=== PATIENT | male | born 1955 | race Two or more races ===

== ENCOUNTER 2024-08-09 21:46 | Inpatient (IN) | payer MEDICARE, MEDICAID ==
[~2024-08-09] VITALS: Ht 167.6 cm; Wt 84.1 kg
[2024-08-09 23:02] LABS: Basophils # (auto) 0 10 ^3/uL (0-0.2); Basophils % (auto) 0.4 % (0.0-2.0); Eosinophils # (auto) 0.1 10 ^3/uL (0-0.8); Eosinophils % (auto) 1.3 % (0.0-7.0); Hematocrit 36.8 % (41.0-53.0); Hemoglobin 12.5 g/dL (13.5-17.5); Lymphocytes # (auto) 1.3 10 ^3/uL (0.4-5.4); Mean Corpuscular Hemoglobin 31.5 pg (28.0-32.0); Mean Corpuscular Hgb Conc. 34.1 g/dL (32.0-36.0); Mean Corpuscular Volume 92.4 fL (80.0-100.0); Monocytes # (auto) 1.2 10 ^3/uL (0-1.3); Monocytes % (auto) 10.7 % (0.0-12.0); Neutrophils # (auto) 8.4 10 ^3/uL (1.6-8.6); Neutrophils % (auto) 75.6 % (37.0-80.0); Platelet Count (auto) 183 10^3/uL (140-450); Red Blood Cells 3.98 10^6/uL (4.5-5.90); Red Cell Distribution Width 13.8 % (11.8-14.3); White Blood Cell 11.1 10^3/uL (4.4-10.8)
--- NOTE | 2024-08-09 23:02 | ED.PDOC ---
History of Present Illness HPI Comments 69-year-old male came to emergency room due to penile/urinary problems. Patient underwent reversal of colostomy 3 days ago, tolerated procedure well, and was discharged with a Tiwari catheter inserted. Patient states few hours ago he started having lower abdominal and penile pain. Noted that his Tiwari catheter is not draining properly and his urine bag is filled with blood. Chief Complaint: Penile Problem Time Seen by MD: 23:00 Primary Care Provider: UNKNOWN Reviewed Notes: Nurses Notes, [employer] T[employer] Notes Allergies: Coded Allergies: No Known Drug Allergy (Verified Allergy, Unknown, 08/10/24) Information Source: Patient Mode of Arrival: EMS Severity: Moderate Timing: Hours Duration: Since onset Review of Systems REVIEW OF SYSTEMS: No fever, no chills, or fatigue HEENT: No sore throat, no earache, no congestion, no neck pain. Cardiac: No chest pain. No palpitations. Lungs: No shortness of breath, no cough. GI: No nausea, no vomiting, no diarrhea, no constipation, (+) abdominal pain : No dysuria, frequency, or urgency. (+) hematuria. (+) urinary retention Musculoskeletal: No joint pain , no joint swelling, no extremity edema. Skin: No rash, no itching. Neuro: No headache, no dizziness, no weakness Vital Signs Vital Signs Date Time Temp Pulse Resp B/P (MAP) Pulse Ox O2 Delivery O2 Flow Rate FiO2 08/10/24 00:30 98.0 60 18 125/80 (95) 97 98.0 Physical Exam General: Awake, alert and oriented. No acute distress. Skin: Skin in warm, dry and intact. Appropriate color for ethnicity. Nailbeds pink with no cyanosis. HEENT: The head is normocephalic and atraumatic. Conjunctivae are clear without exudates or hemorrhage. Sclera is non-icteric. EOM are intact. No signs of nystagmus. Eyelids are normal in appearance without swelling or lesions. Oral mucosa is pink and moist Neck: The neck is supple with normal range of motion. No JVD. Cardiac: Heart rate and rhythm are normal. No murmurs, gallops, or rubs are auscultated. Respiratory: No signs of respiratory distress. Lung sounds are clear in all lobes bilaterally without rales, ronchi, or wheezes. Abdominal: Abdomen is soft, non-tender without distention. Bowel sounds are present and normoactive in all four quadrants. : Right inguinal hernia noted, no overlying skin changes. Tiwari catheter in place. Penis normal. Dark red blood noted in catheter Extremities: Upper and lower extremities are atraumatic in appearance without deformity or edema. Neurological: The patient is awake, alert and oriented to person, place, and ti me with normal speech. Speech is clear. There is no facial asymmetry. Past Medical History PAST MEDICAL HISTORY: HTN Surgical History (Other): Colostomy reversal Family History Family History: Reviewed,noncontributory to illness Social History Smoker: Non-Smoker Alcohol: Denies ETOH Use Drugs: Denies Drug Use Lives In: Home Was a procedure done? Was a procedure done?: No Differential Dx Considerations may include: Anemia, electrolyte imbalance, UTI, urinary retention, postop complication X-Ray, Labs, Meds, VS Vital Signs Date Time Temp Pulse Resp B/P (MAP) Pulse Ox O2 Delivery O2 Flow Rate FiO2 08/10/24 00:30 98.0 60 18 125/80 (95) 97 98.0 08/09/24 22:06 98.6 98 16 124/56 (78) 96 Lab Test 08/10/24 04:35 08/09/24 22:50 Range/Units Urine Color Pending Urine Clarity Pending Urine pH Pending Urine Specific [place] Pending Urine Protein Pending Urine Ketones Pending Urine Blood Pending Urine Nitrite Pending Urine Bilirubin Pending Urine Urobilinogen Pending Urine Leukocyte Esterase Pending Urine RBC Pending Urine Microscopic WBC Pending Urine Squamous Epithelial Cells Pending Urine Bacteria Pending Urine Glucose Pending White Blood Count 11.1 H 4.4-10.8 10^3/uL Red Blood Count 3.98 L 4.5-5.90 10^6/uL Hemoglobin 12.5 L 13.5-17.5 g/dL Hematocrit 36.8 L 41.0-53.0 % Mean Corpuscular Volume 92.4 80.0-100.0 fL Mean Corpuscular Hemoglobin 31.5 28.0-32.0 pg Mean Corpuscular Hemoglobin Concent 34.1 32.0-36.0 g/dL Red Cell Distribution Width 13.8 11.8-14.3 % Platelet Count 183 140-450 10^3/uL Mean Platelet Volume 8.3 6.9-10.8 fL Neutrophils (%) (Auto) 75.6 37.0-80.0 % Lymphocytes (%) (Auto) 12.0 10.0-50.0 % Monocytes (%) (Auto) 10.7 0.0-12.0 % Eosinophils (%) (Auto) 1.3 0.0-7.0 % Basophils (%) (Auto) 0.4 0.0-2.0 % Neutrophils # (Auto) 8.4 1.6-8.6 10 ^3/uL Lymphocytes # (Auto) 1.3 0.4-5.4 10 ^3/uL Monocytes # (Auto) 1.2 0-1.3 10 ^3/uL Eosinophils # (Auto) 0.1 0-0.8 10 ^3/uL Basophils # (Auto) 0 0-0.2 10 ^3/uL Nucleated Red Blood Cells 0.0 % Prothrombin Time 11.4 9.3-11.8 sec Prothrombin Time INR 1.08 0.9-1.15 Sodium Level 139 136-145 mmol/L Potassium Level 3.3 L 3.5-5.1 mmol/L Chloride Level 104 98-107 mmol/L Carbon Dioxide Level 22 20-31 mmol/L Anion Gap 13 5-15 Blood Urea Nitrogen 44 H 9-23 mg/dL Creatinine 2.11 H 0.700-1.30 mg/dL Glomerular Filtration Rate Calc 33 >90 mL/min BUN/Creatinine Ratio 20.9 H 10.0-20.0 Serum Glucose 128 H 74-106 mg/dL Calcium Level 9.6 8.7-10.4 mg/dL Total Bilirubin 0.7 0.2-1.0 mg/dL Aspartate Amino Transferase (AST) 24 13-40 U/L Alanine Aminotransferase (ALT) 23 7-40 U/L Alkaline Phosphatase 75 46-116 U/L Total Protein 6.9 5.7-8.2 g/dL Albumin 4.0 3.2-4.8 g/dL Exam: CT CT AB PEL WO CON-NO ORAL OR IV History: Hematuria, status post colostomy reversal Comparison Study: None available at time of dictation. TECHNIQUE: Multidetector CT of the abdomen was performed from lung bases to pubic symphysis. Imaging was performed without IV contrast. Axial, coronal and sagittal multiplanar reformats were obtained from the axial data set by the technologist. Radiation Dose Information: CT Dose: CTDI volume is 25 mGy. Dose-length product is 250 mGy*cm FINDINGS: Evaluation of solid organs is limited due to lack of intravenous contrast use. Findings: Lung Bases: No acute or significant lung base finding. Normal heart size. No pleural or pericardial effusion. Liver: The liver is normal in size. No focal lesions. Gallbladder and Biliary Tree:gallstones Spleen: Unremarkable Pancreas: The pancreas is grossly normal in appearance. Adrenal Glands: Unremarkable Kidneys: Possible 2 mm left proximal ureteral stone. No definite left hydroureter nephrosis. Atrophic left kidney. Bladder: Tiwari catheter within the bladder. Bowel: The stomach is grossly normal in appearance. Small bowel and colon are normal in caliber and distribution. The appendix is not visualized; however, no secondary findings of acute appendicitis identified. Ascites: Absent Lymphadenopathy: No mesenteric, retroperitoneal or periportal lymphadenopathy. Abdominal Wall and Mesentery: Large right inguinal hernia containing loop of bowel. Vasculature: The visualized abdominal aorta is normal in size and caliber. Evaluation of abdominal and pelvic vessels is limited due to lack of intravenous contrast. Pelvic Organs: Unremarkable Musculoskeletal: No aggressive focal bony lesions, acute fractures or dislocation. Soft tissues: Unremarkable IMPRESSION: Possible 2 mm left proximal ureteral stone. No definite left hydroureter nephrosis. Atrophic left kidney. Gallstones. Postsurgical changes involving the left lower quadrant with left lower quadrant colostomy reversal. Inflammatory changes involve the left lower quadrant, likely postsurgical in nature. Large right inguinal hernia containing loop of bowel. Time of 1ST Reevaluation: 22:51 Reevaluation 1ST: Unchanged Patient Education/Counseling: Diagnosis, Treatment Family Education/Counseling: No Family Present Departure 1 Departure Time of Disposition: 04:45 Impression: Primary Impression: Anticoagulant-induced hematuria Additional Impressions: Nephrolithiasis Urinary retention Tiwari catheter in place Disposition: ADMITTED INPATIENT Condition: Stable Comments 69-year-old male who presents to the emergency department urinary retention and Tiwari catheter in place postoperatively. Patient has hematuria, he is on Eliquis. He continues to report lower abdominal pain. Patient admitted for further treatment, evaluation and monitoring. Extensive evaluation was performed in attempt to identify or rule out: (See differential diagnosis section) The following tests were ordered, and results were reviewed by me: (See diagnostic results section) The following test were independently interpreted by me: N/A I reviewed and agreed with the following test results read by other providers: N/A I reviewed the following notes from the pt's past medical encounters: (None available at this time) Additional information was gathered from interviewing the following independent historians: EMS personnel Discussion of management or test interpretation with external physician/other qualified health rn urgent care: N/A Addressed an acute or chronic illness that poses a threat to life or bodily function: Hematuria on anticoagulation Decision regarding hospitalization or escalation of hospital level of care: Risk and benefits of admission for further treatment of patient's condition was considered. Due to patient's current clinical condition, high risk of decline and poor outcome if discharged and need for further inpatient management and monitoring, patient will be admitted to the hospital. Discussed this with the patient who agrees. Drug therapy requiring intensive monitoring for toxicity: N/A Parenteral controlled substances: IV morphine Decision regarding elective major surgery with identified patient or procedure risk factors: N/A Decision regarding emergency major surgery: N/A Decision not to resuscitate or to de-escalate care because of poor prognosis: N/A Diagnosis or treatment significantly limited by social determinants of health: N/A Critical Care Note Critical Care Time?: No Stability Stability form required: No Heart Score Heart Score: Heart Score Response (Comments) Value History N/A 0 EKG N/A 0 Age N/A 0 Risk Factors N/A 0 Troponin N/A 0 Total 0 I personally scribed for MAGGIE RODRIGUEZ MD ([employer]) on 08/09/24 at 23:02. Electronically submitted by Josué Heard ([employer]). I personally scribed for MAGGIE RODRIGUEZ MD ([employer]) on 08/10/24 at 00:56. Electronically submitted by Josué Heard ([employer]). MAGGIE RODRIGUEZ MD Aug 09, 2024 23:02
[2024-08-09 23:26] LABS: Alanine Aminotransferase 23 U/L (7-40); Alkaline Phosphatase 75 U/L (46-116); Anion Gap 13 (5-15); Aspartate Aminotransferase 24 U/L (13-40); BUN/Creatinine Ratio 20.9 (10.0-20.0); Bilirubin, Total 0.7 mg/dL (0.2-1.0); Calcium 9.6 mg/dL (8.7-10.4); Carbon Dioxide 22 mmol/L (20-31); Chloride 104 mmol/L (98-107); Sodium 139 mmol/L (136-145); Total Protein 6.9 g/dL (5.7-8.2)
[2024-08-09 23:33] LABS: Blood Urea Nitrogen 44 mg/dL (9-23); Glucose 128 mg/dL (74-106); Potassium 3.3 mmol/L (3.5-5.1)
[2024-08-09 23:56] LABS: INR 1.08 (0.9-1.15); Prothrombin Time 11.4 sec (9.3-11.8)
--- NOTE | 2024-08-10 00:31 | DVH ---
Exam: CT CT AB PEL WO CON-NO ORAL OR IV History: Hematuria, status post colostomy reversal Comparison Study: None available at time of dictation. TECHNIQUE: Multidetector CT of the abdomen was performed from lung bases to pubic symphysis. Imaging was performed without IV contrast. Axial, coronal and sagittal multiplanar reformats were obtained fr om the axial data set by the technologist. Radiation Dose Information: CT Dose: CTDI volume is 25 mGy. Dose-length product is 250 mGy*cm FINDINGS: Evaluation of solid organs is limited due to lack of intravenous contrast use. Findings: Lung Bases: No acute or significant lung base finding. Normal heart size. No pleural or pericardial effusion. Liver: The liver is normal in size. No focal lesions. Gallbladder and Biliary Tree:gallstones Spleen: Unremarkable Pancreas: The pancreas is grossly normal in appearance. Adrenal Glands: Unremarkable Kidneys: Possible 2 mm left proximal ureteral stone. No definite left hydroureter nephrosis. Atrophic left kidney. Bladder: Tiwari catheter within the bladder. Bowel: The stomach is grossly normal in appearance. Small bowel and colon are normal in caliber and d istribution. The appendix is not visualized; however, no secondary findings of acute appendicitis id entified. Ascites: Absent Lymphadenopathy: No mesenteric, retroperitoneal or periportal lymphadenopathy. Abdominal Wall and Mesentery: Large right inguinal hernia containing loop of bowel. Vasculature: The visualized abdominal aorta is normal in size and caliber. Evaluation of abdominal a nd pelvic vessels is limited due to lack of intravenous contrast. Pelvic Organs: Unremarkable Musculoskeletal: No aggressive focal bony lesions, acute fractures or dislocation. Soft tissues: Unremarkable IMPRESSION: Possible 2 mm left proximal ureteral stone. No definite left hydroureter nephrosis. Atrophic left kid gen. Gallstones. Postsurgical changes involving the left lower quadrant with left lower quadrant colostomy reversal. I nflammatory changes involve the left lower quadrant, likely postsurgical in nature. Large right inguinal hernia containing loop of bowel. Radiation optimization: All CT scans at this facility use at least one of these dose optimization james hniques: automated exposure control mA and/or kV adjustment per patient size (includes targeted exam s where dose is matched to clinical indication) or iterative reconstruction.
[2024-08-10] MEDS: MORPHINE SULFATE INJ 2 MG/ml SYRG IV ONE (05:28)
[2024-08-10 05:29] LABS: Urine Bacteria MANY /hpf (None Seen); Urine Squamous Epithelial Cell None Seen /hpf (<5); Urine WBC 999 /HPF (0-3)
[2024-08-10] MEDS: TAMSULOSIN HYDROCHLORIDE 0.4 MG CAP PO ONE (05:29)
[2024-08-10] MEDS: ONDANSETRON HCL 4 MG/2 ML VIAL IV ONE (05:29)
[2024-08-10] MEDS: SODIUM CHLORIDE 0.9% 1,000 ML IV ONE ×2 (05:29→10:04)
[2024-08-10 05:30] LABS: Urine Blood 2+ /uL (Negative); Urine Clarity TURBID (Clear); Urine Color DARK RED (Yellow); Urine Protein, UAD 3+ (Negative); Urine Specific Gravity 1.022 (1.001-1.035); Urine Urobilinogen 1 mg/dL (Negative); Urine pH 8.5 (5.0-9.0)
[2024-08-10] MEDS ORDERED: ONDANSETRON HCL 4 MG/2 ML VIAL IV PRN (09:30)
[2024-08-10] MEDS ORDERED: ATOR40TA52 PO (09:39)
--- NOTE | 2024-08-10 09:45 | DVHHP2 ---
History of Present Illness Reason for Visit: Penile problem History of Present Illness This 69-year-old male with past medical history of CHF, AFib on Eliquis, CKD, hyperlipidemia, depression, s/p colostomy reversal presents in the ED with a chief complaint of penile urinary problems. The patient reports recently underwent reversal of colostomy three days ago, the patient states was discharged with Tiwari catheter, noted blood in the urine associated with lower abdominal pain with gross hematuria. The patient denies dizziness, lightheadedness, chest pain, shortness of breath, nausea, vomiting, diarrhea. Past Medical History As stated in HPI Past Surgical History s/p colostomy reversal Family History Reviewed, non-contributory to the management of this case. Past Social History Admits to smoking Denies illicit drug or ETOH abuse Review of Systems Constitutional: Yes: Malaise; No: Fever, Chills, Sweats, Weakness, Other Eyes: No: Pain, Vision change, Conjunctivae inflammation, Eyelid inflammation, Other, Redness ENT: No: Ear pain, Ear discharge, Nose pain, Nose discharge, Nose congestion, Mouth pain, Mouth swelling, Throat pain, Throat swelling, Other Respiratory: No: Cough, Dry, Shortness of breath, SOB with excertion, Wheezing, Hemoptysis, Pleuritic Pain, Sputum, Wheezing, Other Cardiovascular: No: Chest Pain, Palpitations, Orthopnea, Paroxysmal Noc. Dyspnea, Edema, Lt Headedness, Other Gastrointestinal: Abdominal Pain; No: Nausea, Vomiting, Diarrhea, Constipation, Melena, Hematochezia Genitourinary: No Dysuria, No Frequency, No Incontinence; Hematuria, Retention; No Other Musculoskeletal: No: other, neck pain, shoulder pain, arm pain, back pain, hand pain, leg pain, foot pain Skin: No: Rash, Lesions, Jaundice, Bruising, Other Neurological: No: Weakness, Numbness, Incoordination, Change in speech, Confusion, Seizures, Other Allergies: Coded Allergies: No Known Drug Allergy (Verified Allergy, Unknown, 08/10/24) Exam Vital Signs Vital Signs Date Time Temp Pulse Resp B/P (MAP) Pulse Ox O2 Delivery O2 Flow Rate FiO2 08/10/24 08:48 59 08/10/24 07:43 Room Air* 0 21 08/10/24 07:27 97.9 19 111/70 (84) 96 97.9 General Appearance: Alert, Oriented X3, Cooperative, No acute distress, mild distress HEENT: Atraumatic, PERRLA, EOMI, Mucous membr. moist/pink Respiratory: Clear to auscultation, Normal air movement Cardiovascular: Other (Controlled AFib) Abdominal: Normal bowel sounds, Soft, No tenderness, Other (Gross hematuria) Extremities: No clubbing, No edema, Normal pulses Skin: No rashes, No breakdown, No significant lesion Neuro: Normal gait, Normal speech, Strength at 5/5 X4 ext, Normal tone Psych/Mental Status: Mental status NL Labs/Xrays Labs Test 08/10/24 04:35 08/09/24 22:50 Range/Units Urine Color Dark red Yellow Urine Clarity Turbid H Clear Urine pH 8.5 5.0-9.0 Urine Specific [place] 1.022 1.001-1.035 Urine Protein 3+ H Negative Urine Ketones Negative Negative Urine Blood 2+ H Negative /uL Urine Nitrite Negative Negative Urine Bilirubin Negative Negative Urine Urobilinogen 1 H Negative mg/dL Urine Leukocyte Esterase 3+ Negative /uL Urine RBC 45948 0 - 3 /hpf Urine Microscopic WBC 999 H 0-3 /HPF Urine Squamous Epithelial Cells None seen <5 /hpf Urine Bacteria Many H None Seen /hpf Urine Glucose Normal Normal mg/dL White Blood Count 11.1 H 4.4-10.8 10^3/uL Red Blood Count 3.98 L 4.5-5.90 10^6/uL Hemoglobin 12.5 L 13.5-17.5 g/dL Hematocrit 36.8 L 41.0-53.0 % Mean Corpuscular Volume 92.4 80.0-100.0 fL Mean Corpuscular Hemoglobin 31.5 28.0-32.0 pg Mean Corpuscular Hemoglobin Concent 34.1 32.0-36.0 g/dL Red Cell Distribution Width 13.8 11.8-14.3 % Platelet Count 183 140-450 10^3/uL Mean Platelet Volume 8.3 6.9-10.8 fL Neutrophils (%) (Auto) 75.6 37.0-80.0 % Lymphocytes (%) (Auto) 12.0 10.0-50.0 % Monocytes (%) (Auto) 10.7 0.0-12.0 % Eosinophils (%) (Auto) 1.3 0.0-7.0 % Basophils (%) (Auto) 0.4 0.0-2.0 % Neutrophils # (Auto) 8.4 1.6-8.6 10 ^3/uL Lymphocytes # (Auto) 1.3 0.4-5.4 10 ^3/uL Monocytes # (Auto) 1.2 0-1.3 10 ^3/uL Eosinophils # (Auto) 0.1 0-0.8 10 ^3/uL Basophils # (Auto) 0 0-0.2 10 ^3/uL Nucleated Red Blood Cells 0.0 % Prothrombin Time 11.4 9.3-11.8 sec Prothrombin Time INR 1.08 0.9-1.15 Sodium Level 139 136-145 mmol/L Potassium Level 3.3 L 3.5-5.1 mmol/L Chloride Level 104 98-107 mmol/L Carbon Dioxide Level 22 20-31 mmol/L Anion Gap 13 5-15 Blood Urea Nitrogen 44 H 9-23 mg/dL Creatinine 2.11 H 0.700-1.30 mg/dL Glomerular Filtration Rate Calc 33 >90 mL/min BUN/Creatinine Ratio 20.9 H 10.0-20.0 Serum Glucose 128 H 74-106 mg/dL Calcium Level 9.6 8.7-10.4 mg/dL Total Bilirubin 0.7 0.2-1.0 mg/dL Aspartate Amino Transferase (AST) 24 13-40 U/L Alanine Aminotransferase (ALT) 23 7-40 U/L Alkaline Phosphatase 75 46-116 U/L Total Protein 6.9 5.7-8.2 g/dL Albumin 4.0 3.2-4.8 g/dL PROCEDURE(s): ABPL - CT AB PEL WO CON-NO ORAL OR IV REASON: Hematuria, status post colostomy reversal ORDER NUMBER(s): [id number], ACCESSION NUMBER(s): [id number] Exam: CT CT AB PEL WO CON-NO ORAL OR IV History: Hematuria, status post colostomy reversal Comparison Study: None available at time of dictation. TECHNIQUE: Multidetector CT of the abdomen was performed from lung bases to pubic symphysis. Imaging was performed without IV contrast. Axial, coronal and sagittal multiplanar reformats were obtained from the axial data set by the technologist. Radiation Dose Information: CT Dose: CTDI volume is 25 mGy. Dose-length product is 250 mGy*cm FINDINGS: Evaluation of solid organs is limited due to lack of intravenous contrast use. Findings: Lung Bases: No acute or significant lung base finding. Normal heart size. No pleural or pericardial effusion. Liver: The liver is normal in size. No focal lesions. Gallbladder and Biliary Tree:gallstones Spleen: Unremarkable Pancreas: The pancreas is grossly normal in appearance. Adrenal Glands: Unremarkable Kidneys: Possible 2 mm left proximal ureteral stone. No definite left hydroureter nephrosis. Atrophic left kidney. Bladder: Tiwari catheter within the bladder. Bowel: The stomach is grossly normal in appearance. Small bowel and colon are normal in caliber and distribution. The appendix is not visualized; however, no secondary findings of acute appendicitis identified. Ascites: Absent Lymphadenopathy: No mesenteric, retroperitoneal or periportal lymphadenopathy. Abdominal Wall and Mesentery: Large right inguinal hernia containing loop of bowel. Vasculature: The visualized abdominal aorta is normal in size and caliber. Evaluation of abdominal and pelvic vessels is limited due to lack of intravenous contrast. Pelvic Organs: Unremarkable Musculoskeletal: No aggressive focal bony lesions, acute fractures or dislocation. Soft tissues: Unremarkable IMPRESSION: Possible 2 mm left proximal ureteral stone. No definite left hydroureter nephrosis. Atrophic left kidney. Gallstones. Postsurgical changes involving the left lower quadrant with left lower quadrant colostomy reversal. Inflammatory changes involve the left lower quadrant, likely postsurgical in nature. Large right inguinal hernia containing loop of bowel. Assessment/Plan Assessment/Plan # Acute cystitis #Acute abdominal pain #Acute urinary retention #Gross hematuria Admit to medical unit Empiric antibiotic Blood in urine culture CBI Urology consult Tamsulosin #LIDIA on CKD 3B IV fluid Monitor # Chronic AFib on Eliquis # CHF Hold given gross hematuria SCD prophylaxis for DVT Monitor for overload Continue with carvedilol and furosemide with parameters given soft BP # S/P colostomy reversal #Tobacco use Nicotine patch Smoking cessation counseled # Hyperlipidemia Statins Lipid panel DVT prophylaxis with SCD Medical plan discussed with patient and RN Plan discussed with: Patient My Orders Orders - LAURE ELDRIDGE [facility] Procedure Category Date Status Time Admit ADMIT 08/10/24 Verified 09:29 Code Status CODE 08/10/24 Verified 09:29 Ondansetron Hcl PHA 08/10/24 Verified (Zofran) 09:30 Date of Service: Aug 10, 2024 Billing Provider: LAURE ELDRIDGE Common Visit Codes: 30018-[id number] INP/OBS CARE (HIGH) LAURE ELDRIDGE Aug 10, 2024 09:45
[2024-08-10] MEDS: cefTRIAXone 1GM/50ML D5W 50 ML IV ONE (10:36)
[2024-08-10 12:14] VITALS: BP 120/66; PULSE 71; RESP 26; TEMP 96; O2SAT 97
[2024-08-10 12:37] VITALS: PULSE 71; RESP 26; O2SAT 97
[2024-08-10] MEDS ORDERED: FURO20TA4 PO (12:51)
[2024-08-10] MEDS ORDERED: CARV3.1240 PO (12:51)
[2024-08-10] MEDS ORDERED: APIX5TAB (13:53)
[2024-08-10] MEDS ORDERED: APIX5TAB PO (13:53)
[2024-08-10 14:29] LABS: LDL Cholesterol 38 mg/dL (< 100); Triglycerides 108 mg/dL (< 150)
[2024-08-10 14:30] LABS: Cholesterol 88 mg/dL (< 200)
[2024-08-10 14:33] LABS: HDL Cholesterol 29 mg/dL (40-59)
[2024-08-10] MEDS: MORPHINE SULFATE INJ 2 MG/ml SYRG IV PRN (14:38)
[2024-08-10 17:00] VITALS: BP 117/73; PULSE 70; RESP 20; TEMP 96; O2SAT 96
[2024-08-10] MEDS: TAMSULOSIN HYDROCHLORIDE 0.4 MG CAP PO SCH (18:11)
[2024-08-10 20:00] VITALS: PULSE 60; RESP 18; O2SAT 95
[2024-08-10 21:00] VITALS: BP 104/65; PULSE 61; RESP 16; TEMP 98; O2SAT 96
[2024-08-10] MEDS: ATORVASTATIN 20 MG TAB PO SCH (22:10)
[2024-08-11] VITALS (8 sets, daily range): BP systolic 108–131; BP diastolic 66–79; PULSE 53–87; RESP 17–20; TEMP 97.6–98.4; O2SAT 95–98
[2024-08-11 07:10] LABS: Basophils # (auto) 0.1 10 ^3/uL (0-0.2); Basophils % (auto) 0.7 % (0.0-2.0); Eosinophils # (auto) 0.3 10 ^3/uL (0-0.8); Eosinophils % (auto) 3.5 % (0.0-7.0); Hematocrit 34.8 % (41.0-53.0); Hemoglobin 11.7 g/dL (13.5-17.5); Lymphocytes # (auto) 1.3 10 ^3/uL (0.4-5.4); Lymphocytes % (auto) 17.2 % (10.0-50.0); Mean Corpuscular Hemoglobin 30.6 pg (28.0-32.0); Mean Corpuscular Hgb Conc. 33.5 g/dL (32.0-36.0); Mean Corpuscular Volume 91.3 fL (80.0-100.0); Monocytes % (auto) 13.5 % (0.0-12.0); Neutrophils # (auto) 4.8 10 ^3/uL (1.6-8.6); Neutrophils % (auto) 65.1 % (37.0-80.0); Nucleated Red Blood Cells % 0.1 %; Platelet Count (auto) 167 10^3/uL (140-450); Red Blood Cells 3.81 10^6/uL (4.5-5.90); Red Cell Distribution Width 13.4 % (11.8-14.3); White Blood Cell 7.4 10^3/uL (4.4-10.8)
--- NOTE | 2024-08-11 07:24 | DVHPNRES ---
Progress Note Date Seen: Aug 11, 2024 Resident Creating Document: SUKHI BURNHAM RESIDENT Medical Necessity Reason Pt with a Central, PICC or Fol: No Subjective Review of Systems Mr. Moody is a 69-year-old male past medical history of questionable congestive heart failure, atrial fibrillation on Eliquis-last dose 08/10, ostomy done 40 months back, reversal 08/07, inguinal hernia who presented to the ER with a chief complaint hematuria, inability to urinate and bloody stools. Was admitted in [facility] for this back for reversal of colostomy, following which he went home and developed urinary retention, pain and dysuria while urinating for the past 2 days. He reports taking Eliquis last dose 08/10. Also reports fresh red bleeding per rectum for the past day. Denies abdominal pain, fever, chills, nausea, vomiting. On admission, Tiwari catheter was placed. Now draining dark yellow urine. UA showed 3+ leukocyte esterase, 999 WBC +RBCs. H and H was 2/36 on arrival. Past medical/surgical history: See above Home medications: Entresto, clonidine, Coreg, aspirin Allergic history: None Social history: Smokes 10 cigarettes per day for the past more than 30 years, drinks socially, denies illicit drug use Patient seen and examined at the bedside. Holding of Eliquis. Stool occult positive. Started pantoprazole and Carafate. Rectal exam completed, rectal tone intact, prostatomegaly, no active bleeding, no external hemorrhoids felt no fissure no tenderness. Objective vital signs Vital Sign Date Time Temp Pulse Resp B/P (MAP) Pulse Ox O2 Delivery O2 Flow Rate FiO2 08/11/24 05:06 72 18 110/71 08/11/24 05:00 97.9 96 97.9 08/10/24 20:00 Room Air* 0 21 Total Intake and Output 08/10/24 08/10/24 08/11/24 15:00 23:00 07:00 Intake Total 815 ml 690 ml Output Total 93964 ml 3525 ml Balance 815 ml -01333 ml -3525 ml medications Current Medications Medications Dose Ordered Sig/Saad Route Start Time Stop Time Status Last Admin Dose Admin Ondansetron HCl 4 mg Q4HP PRN IV 08/10/24 09:30 Tamsulosin HCl 0.4 mg QPM PO 08/10/24 18:00 08/10/24 18:11 0.4 MG Ceftriaxone Sodium 50 ml @ 100 mls/hr DAILY@09 IV 08/11/24 09:00 Nicotine 1 patch DAILY TD 08/11/24 10:00 Atorvastatin Calcium 40 mg HS PO 08/10/24 22:00 08/10/24 22:10 40 MG Morphine Sulfate 2 mg Q4HPRN PRN IV 08/10/24 14:00 08/11/24 04:36 2 MG Pantoprazole Sodium 40 mg BID IV 08/11/24 10:00 UNV Sucralfate 1 gm QID@0600,1130,1700,2200 PO 08/11/24 11:30 UNV Examination Patient lying in bed, in no acute distress General: Well-built, afebrile, palor, mucosae are moist Cardiovascular: Regular S1 and S2. No murmurs, gallops or rubs. No JVD elevation. 1+ pitting edema Respiratory: Normal B/L air entry on room air. Clear lung sounds on auscultation Abdomen: Soft, suprapubic tenderness, nondistended, normoactive bowel sounds, no rebound tenderness, no organomegaly, no masses. No costovertebral tenderness. Rectal exam completed, rectal tone intact, prostatomegaly, no active bleeding, no external hemorrhoids felt no fissure no tenderness. Genitourinary: Deferred MSK/skin: Mobilizes 4 limbs. Skin is dry and warm Neurological: No motor, no sensitive deficits, normal speech. Pupils are isocoric and reactive. Psych/Mental Status: A/Ox3 laboratory and microbiology Laboratory Tests 08/11/24 06:19 Test 08/11/24 06:19 Range/Units Serum Glucose Pending Labs and/or images reviewed: Labs reviewed by me, Image(s) reviewed by me Problem List/Assessment/Plan Problem List/Assessment/Plan Acute cystitis ? Acute urinary retention Left nephrolithiasis Urine culture >100,000 CFU/mL Gram Negative Rods Blood culture prelim negative Renal ultrasound shows bilateral kidneys are small in size. No evidence of nephrolithiasis or hydronephrosis CT abdomen shows 2 mm left proximal ureteral stone Continue IV ceftriaxone 1 g daily starting 08/10 Tamsulosin 0.4 mg p.o. daily starting 03/12 Urology consultation pending Fresh red bleeding per rectum Occult positive History of colostomy reversal 08/07 at [facility] Gallstones, no acute cholecystitis Continue pantoprazole IV b.i.d. and Carafate 1 g q.i.d. GI consultation pending Reports that he had a colonoscopy which was normal few months back at [facility] Right inguinal hernia-nontender, nonerythematous, not incarcerated CT scan showed large right inguinal hernia containing loop of bowel Outpatient workup advised ? Congestive heart failure BNP 3 3 3 Chest x-ray ordered LIDIA, likely vasomotor mediated on ? CKD Anemia likely normocytic secondary to CKD Creatinine 2.1 on arrival, now 1.83 downtrending GFR 38 Persistent atrial fibrillation on Eliquis Holding Eliquis Chronic nicotine dependence Nicotine patch Counseled regarding cessation for more than 28 minutes Dyslipidemia 10 year ASCVD risk 18% Atorvastatin 40 mg HS daily DVT prophylaxis on hold given hematuria: SCDs Plan discussed with the patient in which all questions have been answered Goals of care discussed with the patient for more than 28 minutes, full code status Case discussed with Dr. Stein Plan discussed with: Patient My Orders My Orders Orders - SUKHI BURNHAM Procedure Category Date Status Time Pantoprazole [facility] 08/11/24 Logged (Protonix) 10:00 Sucralfate Susp PHA 08/11/24 Logged (Carafate Susp) 11:30 Copy Of Previous DOTTY 08/11/24 In Process Medical Recor 07:22 Obtain Mr From Other ORDERS 08/11/24 Transmitted Facility 07:22 Date of Service: Aug 11, 2024 Billing Provider: NATHALIA STEIN MD Common Visit Codes: [id number] INP/OBS CARE(HIGH) SUKHI BURNHAM Aug 11, 2024 07:24 NATHALIA STEIN MD Aug 11, 2024 18:58
[2024-08-11 07:29] LABS: Alanine Aminotransferase 21 U/L (7-40); Alkaline Phosphatase 66 U/L (46-116); Anion Gap 7 (5-15); BUN/Creatinine Ratio 20.8 (10.0-20.0); Calcium 8.9 mg/dL (8.7-10.4); Carbon Dioxide 25 mmol/L (20-31); Glucose 83 mg/dL (74-106); Potassium 3.7 mmol/L (3.5-5.1); Sodium 142 mmol/L (136-145); Total Protein 5.9 g/dL (5.7-8.2)
[2024-08-11 07:30] LABS: Albumin 3.4 g/dL (3.2-4.8); Aspartate Aminotransferase 22 U/L (13-40); Bilirubin, Total 0.6 mg/dL (0.2-1.0)
[2024-08-11 07:35] LABS: Blood Urea Nitrogen 38 mg/dL (9-23); Chloride 110 mmol/L (98-107)
[2024-08-11] MEDS: PANTOPRAZOLE 40 MG/10 ML VIAL INJ IV SCH (09:27)
[2024-08-11] MEDS: cefTRIAXone 1GM/50ML D5W 50 ML IV SCH (09:27)
[2024-08-11] MEDS: NICOTINE 7MG/24HR TOPICAL PATCH TD SCH (09:36)
[2024-08-11] MEDS: POTASSIUM EFFERVESENT TAB 25 MEQ PO ONE (09:37)
--- NOTE | 2024-08-11 11:12 | DVH ---
RENAL ULTRASOUND CLINICAL HISTORY: Rule out hydronephrosis TECHNIQUE: Multiple ultrasound images of the kidneys and bladder were obtained. COMPARISON: None FINDINGS: The right kidney measures 8.2 cm in length. The left kidney measures 7.7 cm. The kidneys appear small in size. There is no sonographic evidence of a discrete renal lesion, nephrolithiasis or hydronephro sis. There is a Tiwari catheter in the bladder which is decompressed limiting evaluation. IMPRESSION: 1. The kidneys are small in size. There is no evidence of nephrolithiasis or hydronephrosis. HS:Y
[2024-08-11 11:53] LABS: Free T4 (Free Thyroxine) 1.55 ng/dL (0.89-1.76); T3 Total 1.17 ng/mL (0.60-1.81)
--- NOTE | 2024-08-11 14:07 | DVH ---
CHEST RADIOGRAPH Indication: Deep breath chest x-ray, bilateral crackles Technique: Single frontal view of the chest was obtained Comparison: None FINDINGS: Lines and Tubes: None Lungs: No focal consolidation. Pleura: No effusion. No pneumothorax. Cardiomediastinal contours: Unremarkable Bones: No acute osseous abnormality. IMPRESSION: No acute cardiopulmonary disease.
[2024-08-11] MEDS: SUCRALFATE 1 GM/10 ML ORAL SUSP PO SCH (14:37)
--- NOTE | 2024-08-11 14:41 | ECG ---
[facility] Test Date: 2024-08-11 Test Time: 10:44:40 Pat Name: ALLY GALLO Department: Respiratoy Room: 0246 Gender: M Floorhand: KEITH : 1955 Requested By: SUKHI BURNHAM Order Number: [id number] Reading MD: Matt Mathews Measurements Intervals Ucon Rate: 73 P: 0 AK: 0 QRS: -145 QRSD: 160 T: 39 QT: 385 QTc: 425 Interpretive Statements Atrial fibrillation Right bundle branch block Electronically Signed On 08-13-2024 16:30:06 PDT by Matt Mathews Please click the below link to view image of tracing.
--- NOTE | 2024-08-11 15:26 | DVHSR ---
APPROVED REPORT EXAM: Two-dimensional and M-mode echocardiogram with Doppler and color Doppler. Blood Pressure: 122/74 mmHg INDICATION Peripheral Edema RISK FACTORS Height: 5'6", Weight: 182 DIMENSIONS LVDd5.0 (3.8-5.7cm)LA (2D)4.7 (1.9-4.0cm)Aortic Root (2.0-3.7cm) LVDs4.0 (2.5-4.0cm)LA (MM) (1.9-4.0cm)Aortic Cusp Exc (1.5-2.0cm) EF (%) 40.0 (55-70%)Rt. Atrium4.5 (1.9-4.0cm)Asc. Aorta cm IVSd1.2 (0.7-1.1cm)RV (D)4.4 (1.8-2.4cm) Mitral Valve MitralMitral Stenosis E wave0.61m/sMV Mean GR.mmHg E/A ratio0.02D MVAcm2 Aortic Valve Aortic ValveAortic Stenosis V10.80m/Alexa Mean GR.4mmHg V21.13m/Alexa Peak GR.5mmHg LVOT Diameter2.0 (1.8-2.4cm)Doppler AVA2.22cm2 Tricuspid Valve TR Velocity1.96m/s [id number] Other Information Quality : Technically LimitedRhythm : Technically limited study due to body habitus and patient position. Conclusion lvef 30% by visual estimate RV dysfunction mild biatrial enlargement moderate mild mitral regurg mild to moderate tricuspid regurg
[2024-08-11] MEDS: ATORVASTATIN 20 MG TAB PO SCH (22:54)
[2024-08-12 01:00] VITALS: BP 121/73; PULSE 86; RESP 19; TEMP 98.4; O2SAT 96
[2024-08-12 05:00] VITALS: BP 112/75; PULSE 60; RESP 18; TEMP 97.6; O2SAT 99
[2024-08-12 08:15] VITALS: PULSE 75; RESP 18; O2SAT 98
[2024-08-12 09:00] VITALS: BP 108/70; PULSE 68; RESP 16; TEMP 98.2; O2SAT 97
[2024-08-12] MEDS: ERTAPENEM SOD INJ 0.5 GM in SODIUM CHL 0.9% 50 ML IV ONE (10:30)
[2024-08-12] MEDS: CARVEDILOL 3.125 MG TAB PO ONE (11:12)
[2024-08-12] MEDS ORDERED: MORPHINE SULFATE INJ 2 MG/ml SYRG IV PRN (12:00)
--- NOTE | 2024-08-12 12:32 | DVHINCON2 ---
Date of service: Aug 12, 2024 Referring Physician Hospitalist Reason for Consultation Urinary retention History of Present Illness Patient recently underwent colostomy reversal and has been in urinary retention requiring Tiwari catheter. He has a three way Tiwari catheter on continuous bladder irrigation but the urine is currently clear. CBI has been turned off 69-year-old male with past medical history of CHF, AFib on Eliquis, CKD, hyperlipidemia, depression, s/p colostomy reversal presents in the ED with a chief complaint of penile urinary problems. The patient reports recently underwent reversal of colostomy three days ago, the patient states was discharged with Tiwari catheter, noted blood in the urine associated with lower abdominal pain with gross hematuria. The patient denies dizziness, lightheadedness, chest pain, shortness of breath, nausea, vomiting, diarrhea. Past Medical History As stated in HPI Past Surgical History s/p colostomy reversal Family History: Patient reports no known family medical history. Allergies: Coded Allergies: No Known Drug Allergy (Verified Allergy, Unknown, 08/10/24) Home Meds Reported Medications Apixaban Base (ELIQUIS) 5 Mg Tab, 5 MG PO BID, TAB 08/10/24 Apixaban Base (ELIQUIS) 5 Mg Tab, 1 08/10/24 Carvedilol (Carvedilol) 3.125 Mg Tab, 1 TAB PO DAILY 08/10/24 Furosemide (Furosemide) 20 Mg Tab, 1 TAB PO DAILY 08/10/24 Atorvastatin Calcium (ATORVASTATIN CALCIUM) 40 Mg Tab, 1 TAB PO DAILY 08/10/24 Current Medications Current Medications Medications (Trade) Dose Ordered Sig/Saad Route PRN Reason Start Time Stop Time Status Last Admin Atorvastatin Calcium (Lipitor) 40 mg HS PO 08/11/24 22:00 08/11/24 22:54 Carvedilol (Coreg Tablet) 3.125 mg Q12HR PO 08/12/24 22:00 Ertapenem 0.5 gm/ Sodium Chloride 50 ml @ 100 mls/hr DAILY IV 08/13/24 10:00 08/12/24 11:21 DC Ertapenem 1 gm/ Sodium Chloride 50 ml @ 100 mls/hr DAILY IV 08/13/24 10:00 Morphine Sulfate 2 mg Q3HPRN PRN IV SEVERE PAIN (7-10 PAIN SCALE) 08/12/24 12:00 UNV Review of Systems Constitutional: Yes: Malaise; No: Fever, Chills, Sweats, Weakness, Other Eyes: No: Pain, Vision change, Conjunctivae inflammation, Eyelid inflammation, Other, Redness ENT: No: Ear pain, Ear discharge, Nose pain, Nose discharge, Nose congestion, Mouth pain, Mouth swelling, Throat pain, Throat swelling, Other Respiratory: No: Cough, Dry, Shortness of breath, SOB with excertion, Wheezing, Hemoptysis, Pleuritic Pain, Sputum, Wheezing, Other Cardiovascular: No: Chest Pain, Palpitations, Orthopnea, Paroxysmal Noc. Dyspnea, Edema, Lt Headedness, Other Gastrointestinal: Abdominal Pain; No: Nausea, Vomiting, Diarrhea, Constipation, Melena, Hematochezia Genitourinary: No Dysuria, No Frequency, No Incontinence; Hematuria, Retention; No Other Musculoskeletal: No: other, neck pain, shoulder pain, arm pain, back pain, hand pain, leg pain, foot pain Skin: No: Rash, Lesions, Jaundice, Bruising, Other Neurological: No: Weakness, Numbness, Incoordination, Change in speech, Confusion, Seizures, Other Allergies: Coded Allergies: No Known Drug Allergy (Verified Allergy, Unknown, 08/10/24) Exam Exam Vital Signs Vital Signs Date Time Temp Pulse Resp B/P (MAP) Pulse Ox O2 Delivery O2 Flow Rate FiO2 08/10/24 08:48 59 08/10/24 07:43 Room Air* 0 21 08/10/24 07:27 97.9 19 111/70 (84) 96 97.9 General Appearance: Alert, Oriented X3, Cooperative, No acute distress, mild distress HEENT: Atraumatic, PERRLA, EOMI, Mucous membr. moist/pink Respiratory: Clear to auscultation, Normal air movement Cardiovascular: Other (Controlled AFib) Abdominal: Normal bowel sounds, Soft, No tenderness, Other (Gross hematuria) Extremities: No clubbing, No edema, Normal pulses Skin: No rashes, No breakdown, No significant lesion Neuro: Normal gait, Normal speech, Strength at 5/5 X4 ext, Normal tone Psych/Mental Status: Mental status NL Vital Signs Vital Signs Date Time Temp Pulse Resp B/P (MAP) Pulse Ox O2 Delivery O2 Flow Rate FiO2 08/12/24 11:12 85 117/73 08/12/24 11:00 18 08/12/24 09:00 98.2 97 98.2 08/12/24 08:15 Room Air* 0 21 Physical Exam Exam Exam Vital Signs Vital Signs Date Time Temp Pulse Resp B/P (MAP) Pulse Ox O2 Delivery O2 Flow Rate FiO2 08/10/24 08:48 59 08/10/24 07:43 Room Air* 0 21 08/10/24 07:27 97.9 19 111/70 (84) 96 97.9 General Appearance: Alert, Oriented X3, Cooperative, No acute distress, mild distress HEENT: Atraumatic, PERRLA, EOMI, Mucous membr. moist/pink Respiratory: Clear to auscultation, Normal air movement Cardiovascular: Other (Controlled AFib) Abdominal: Normal bowel sounds, Soft, No tenderness, Other (Gross hematuria) exam: Tiwari catheter in place with clear urine noted. Continuous bladder irrigation turned off Extremities: No clubbing, No edema, Normal pulses Skin: No rashes, No breakdown, No significant lesion Neuro: Normal gait, Normal speech, Strength at 5/5 X4 ext, Normal tone Psych/Mental Status: Mental status NL Labs/Diagnostic Data Labs Test 08/11/24 06:19 08/10/24 21:15 08/10/24 13:50 08/10/24 04:35 Range/Units White Blood Count 7.4 # 4.4-10.8 10^3/uL Red Blood Count 3.81 L 4.5-5.90 10^6/uL Hemoglobin 11.7 L 13.5-17.5 g/dL Hematocrit 34.8 L 41.0-53.0 % Mean Corpuscular Volume 91.3 80.0-100.0 fL Mean Corpuscular Hemoglobin 30.6 28.0-32.0 pg Mean Corpuscular Hemoglobin Concent 33.5 32.0-36.0 g/dL Red Cell Distribution Width 13.4 11.8-14.3 % Platelet Count 167 140-450 10^3/uL Mean Platelet Volume 8.6 6.9-10.8 fL Neutrophils (%) (Auto) 65.1 37.0-80.0 % Lymphocytes (%) (Auto) 17.2 10.0-50.0 % Monocytes (%) (Auto) 13.5 H 0.0-12.0 % Eosinophils (%) (Auto) 3.5 0.0-7.0 % Basophils (%) (Auto) 0.7 0.0-2.0 % Neutrophils # (Auto) 4.8 1.6-8.6 10 ^3/uL Lymphocytes # (Auto) 1.3 0.4-5.4 10 ^3/uL Monocytes # (Auto) 1.0 0-1.3 10 ^3/uL Eosinophils # (Auto) 0.3 0-0.8 10 ^3/uL Basophils # (Auto) 0.1 0-0.2 10 ^3/uL Nucleated Red Blood Cells 0.1 % Sodium Level 142 136-145 mmol/L Potassium Level 3.7 3.5-5.1 mmol/L Chloride Level 110 H 98-107 mmol/L Carbon Dioxide Level 25 20-31 mmol/L Anion Gap 7 5-15 Blood Urea Nitrogen 38 H 9-23 mg/dL Creatinine 1.83 H 0.700-1.30 mg/dL Glomerular Filtration Rate Calc 40 >90 mL/min BUN/Creatinine Ratio 20.8 H 10.0-20.0 Serum Glucose 83 74-106 mg/dL Hemoglobin A1c 5.3 <5.7 % A1C Calcium Level 8.9 8.7-10.4 mg/dL Magnesium Level 1.8 1.6-2.6 mg/dL Total Bilirubin 0.6 0.2-1.0 mg/dL Aspartate Amino Transferase (AST) 22 13-40 U/L Alanine Aminotransferase (ALT) 21 7-40 U/L Alkaline Phosphatase 66 46-116 U/L B-Type Natriuretic Peptide 333.24 0-100 pg/mL Total Protein 5.9 5.7-8.2 g/dL Albumin 3.4 3.2-4.8 g/dL Vitamin B12 Level 414 211-911 pg/mL Vitamin D 25-Hydroxy 36.5 30.0-100 ng/mL Thyroid Stimulating Hormone (TSH) 9.22 H 0.55-4.78 uIU/mL Free Thyroxine (T4) Calculated 1.55 0.89-1.76 ng/dL Total Triiodothyronine (TT3) 1.17 0.60-1.81 ng/mL Stool Occult Blood Positive x 1 Negative Stool Occult Blood Sample #3 Negative Triglycerides Level 108 < 150 mg/dL Cholesterol Level 88 < 200 mg/dL LDL Cholesterol 38 < 100 mg/dL HDL Cholesterol 29 L 40-59 mg/dL Urine Color Dark red Yellow Urine Clarity Turbid H Clear Urine pH 8.5 5.0-9.0 Urine Specific [place] 1.022 1.001-1.035 Urine Protein 3+ H Negative Urine Ketones Negative Negative Urine Blood 2+ H Negative /uL Urine Nitrite Negative Negative Urine Bilirubin Negative Negative Urine Urobilinogen 1 H Negative mg/dL Urine Leukocyte Esterase 3+ Negative /uL Urine RBC 87021 0 - 3 /hpf Urine Microscopic WBC 999 H 0-3 /HPF Urine Squamous Epithelial Cells None seen <5 /hpf Urine Bacteria Many H None Seen /hpf Urine Glucose Normal Normal mg/dL Test 08/09/24 22:50 Range/Units Prothrombin Time 11.4 9.3-11.8 sec Prothrombin Time INR 1.08 0.9-1.15 Microbiology Date/Time Source Procedure Growth Status 08/10/24 20:00 Nose MRSA Screen - Final Complete 08/10/24 10:08 Blood Blood Culture - Preliminary NO GROWTH AFTER 48 HOURS OF INCUBATION. Resulted 08/10/24 04:35 Voided Urine Urine Culture - Preliminary Proteus mirabilis - ESBL Resulted PATIENT: ALLY GALLO ACCT: [id number] UNIT: [id number] : 1955 LOC: ER ROOM / BED: / AGE / SEX: 69 / M ADM STATUS: REG ER SERVICE 2243 ORDERING PHYSICIAN: MAGGIE RODRIGUEZ MD PROCEDURE(s): ABPL - CT AB PEL WO CON-NO ORAL OR IV REASON: Hematuria, status post colostomy reversal ORDER NUMBER(s): [id number], ACCESSION NUMBER(s): [id number] Exam: CT CT AB PEL WO CON-NO ORAL OR IV History: Hematuria, status post colostomy reversal Comparison Study: None available at time of dictation. TECHNIQUE: Multidetector CT of the abdomen was performed from lung bases to pubic symphysis. Imaging was performed without IV contrast. Axial, coronal and sagittal multiplanar reformats were obtained from the axial data set by the technologist. Radiation Dose Information: CT Dose: CTDI volume is 25 mGy. Dose-length product is 250 mGy*cm FINDINGS: Evaluation of solid organs is limited due to lack of intravenous contrast use. Findings: Lung Bases: No acute or significant lung base finding. Normal heart size. No pleural or pericardial effusion. Liver: The liver is normal in size. No focal lesions. Gallbladder and Biliary Tree:gallstones Spleen: Unremarkable Pancreas: The pancreas is grossly normal in appearance. Adrenal Glands: Unremarkable Kidneys: Possible 2 mm left proximal ureteral stone. No definite left hydroureter nephrosis. Atrophic left kidney. Bladder: Tiwari catheter within the bladder. Bowel: The stomach is grossly normal in appearance. Small bowel and colon are normal in caliber and distribution. The appendix is not visualized; however, no secondary findings of acute appendicitis identified. Ascites: Absent Lymphadenopathy: No mesenteric, retroperitoneal or periportal lymphadenopathy. Abdominal Wall and Mesentery: Large right inguinal hernia containing loop of bowel. Vasculature: The visualized abdominal aorta is normal in size and caliber. Evaluation of abdominal and pelvic vessels is limited due to lack of intravenous contrast. Pelvic Organs: Unremarkable Musculoskeletal: No aggressive focal bony lesions, acute fractures or dislocation. Soft tissues: Unremarkable IMPRESSION: Possible 2 mm left proximal ureteral stone. No definite left hydroureter nephrosis. Atrophic left kidney. Gallstones. Postsurgical changes involving the left lower quadrant with left lower quadrant colostomy reversal. Inflammatory changes involve the left lower quadrant, likely postsurgical in nature. Large right inguinal hernia containing loop of bowel. Radiation optimization: All CT scans at this facility use at least one of these dose optimization techniques: automated exposure control mA and/or kV adjustment per patient size (includes targeted exams where dose is matched to clinical indication) or iterative reconstruction. ATED BY: RODO HALL MD DICTATED DATE/TIME: 08/10/24 0028 SIGNED BY: RODO HALL MD SIGNED DATE/TIME: 08/10/24 0028 CC: Assessment Urinary retention Urinary tract infection Azotemia Right inguinal hernia Plan/Recommendation Keep Tiwari to gravity drainage. Discontinue CBI Discharged home with indwelling catheter General surgery evaluation regarding right inguinal hernia Plan discussed with: Patient, Other JACKY PAZ MD Aug 12, 2024 12:32
[2024-08-12 12:37] VITALS: BP 109/72; PULSE 73; RESP 16; TEMP 98; O2SAT 97
--- NOTE | 2024-08-12 12:44 | DVHPNRES ---
Progress Note Date Seen: Aug 12, 2024 Resident Creating Document: SUKHI BURNHAM RESIDENT Medical Necessity Reason Pt with a Central, PICC or Fol: No Subjective Review of Systems Mr. Moody is a 69-year-old male past medical history of questionable congestive heart failure, atrial fibrillation on Eliquis-last dose 08/10, ostomy done 40 months back, reversal 08/07, inguinal hernia who presented to the ER with a chief complaint hematuria, inability to urinate and bloody stools. Was admitted in [facility] for this back for reversal of colostomy, following which he went home and developed urinary retention, pain and dysuria while urinating for the past 2 days. He reports taking Eliquis last dose 08/10. Also reports fresh red bleeding per rectum for the past day. Denies abdominal pain, fever, chills, nausea, vomiting. On admission, Tiwari catheter was placed. Now draining dark yellow urine. UA showed 3+ leukocyte esterase, 999 WBC +RBCs. H and H was 2/36 on arrival. Past medical/surgical history: See above Home medications: Entresto, clonidine, Coreg, aspirin Allergic history: None Social history: Smokes 10 cigarettes per day for the past more than 30 years, drinks socially, denies illicit drug use 08/11 - Patient seen and examined at the bedside. Holding of Eliquis. Stool occult positive. Started pantoprazole and Carafate. Rectal exam completed, rectal tone intact, prostatomegaly, no active bleeding, no external hemorrhoids felt no fissure no tenderness. 08/12 - patient seen and examined at the bedside. Had 3 bowel movements overnight, 1 bowel movement this morning which was maroon red. GI consultation pending, surgeon consulted. financial services intern consulted for transferring the patient Objective vital signs Vital Sign Date Time Temp Pulse Resp B/P (MAP) Pulse Ox O2 Delivery O2 Flow Rate FiO2 08/12/24 11:12 85 117/73 08/12/24 11:00 18 08/12/24 09:00 98.2 97 98.2 08/12/24 08:15 Room Air* 0 21 Total Intake and Output 08/11/24 08/11/24 08/12/24 14:59 22:59 06:59 Intake Total 50 ml 1008 ml 80 ml Output Total 3850 ml Balance 50 ml -2842 ml 80 ml medications Current Medications Medications Dose Ordered Sig/Saad Route Start Time Stop Time Status Last Admin Dose Admin Ondansetron HCl 4 mg Q4HP PRN IV 08/10/24 09:30 Tamsulosin HCl 0.4 mg QPM PO 08/10/24 18:00 08/11/24 18:11 0.4 MG Nicotine 1 patch DAILY TD 08/11/24 10:00 Pantoprazole Sodium 40 mg BID IV 08/11/24 10:00 08/12/24 09:59 40 MG Sucralfate 1 gm QID@0600,1130,1700,2200 PO 08/11/24 11:30 08/12/24 11:11 1 GM Atorvastatin Calcium 40 mg HS PO 08/11/24 22:00 08/11/24 22:54 40 MG Carvedilol 3.125 mg Q12HR PO 08/12/24 22:00 Ertapenem 1 gm/ Sodium Chloride 50 ml @ 100 mls/hr DAILY IV 08/13/24 10:00 Morphine Sulfate 2 mg Q3HPRN PRN IV 08/12/24 12:00 UNV Examination Patient lying in bed, in no acute distress General: Well-built, afebrile, palor, mucosae are moist Cardiovascular: Regular S1 and S2. No murmurs, gallops or rubs. No JVD elevation. 1+ pitting edema Respiratory: Normal B/L air entry on room air. Clear lung sounds on auscultation Abdomen: Soft, suprapubic tenderness, nondistended, normoactive bowel sounds, no rebound tenderness, no organomegaly, no masses. No costovertebral tenderness. Rectal exam completed, rectal tone intact, prostatomegaly, no active bleeding, no external hemorrhoids felt no fissure no tenderness. Genitourinary: Deferred MSK/skin: Mobilizes 4 limbs. Skin is dry and warm Neurological: No motor, no sensitive deficits, normal speech. Pupils are isocoric and reactive. Psych/Mental Status: A/Ox3 laboratory and microbiology Laboratory Tests 08/11/24 06:19 Test 08/11/24 06:19 Range/Units Serum Glucose 83 74-106 mg/dL Microbiology Date/Time Source Procedure Growth Status 08/10/24 20:00 Nose MRSA Screen - Final Complete 08/10/24 10:08 Blood Blood Culture - Preliminary NO GROWTH AFTER 48 HOURS OF INCUBATION. Resulted 08/10/24 04:35 Voided Urine Urine Culture - Final Proteus mirabilis - ESBL Complete Labs and/or images reviewed: Labs reviewed by me, Image(s) reviewed by me Problem List/Assessment/Plan Problem List/Assessment/Plan Acute cystitis - ESBL Proteus ? Acute urinary retention Left nephrolithiasis Urine culture showed ESBL Proteus sensitive to meropenem, ertapenem IV ertapenem started 08/12, renal dose given creatinine clearance 18 for 14 days Blood culture prelim negative Renal ultrasound shows bilateral kidneys are small in size. No evidence of nephrolithiasis or hydronephrosis CT abdomen shows 2 mm left proximal ureteral stone Continue IV ceftriaxone 1 g daily starting 08/10 Tamsulosin 0.4 mg p.o. daily starting 03/12 Urology consultation okay to discharge with Tiwari Fresh red bleeding per rectum Occult positive History of colostomy reversal 08/07 at [facility] Gallstones, no acute cholecystitis Continue pantoprazole IV b.i.d. and Carafate 1 g q.i.d. GI consultation pending Reports that he had a colonoscopy which was normal few months back at [facility] Surgeon consulted Systolic congestive heart failure Right inguinal hernia-nontender, nonerythematous, not incarcerated CT scan showed large right inguinal hernia containing loop of bowel Outpatient workup advised Chronic Systolic Congestive heart failure BNP 3 3 3 Chest x-ray shows PVC, echo completed, shows LVEF 30%. Started Coreg 3.125 b.i.d. Holding off on Entresto given LIDIA LIDIA, likely vasomotor mediated on ? CKD Anemia likely normocytic secondary to CKD Creatinine 2.1 on arrival, now 1.83 downtrending GFR 38 Consulted nephrology Persistent atrial fibrillation on Eliquis Holding Eliquis Chronic nicotine dependence Nicotine patch Counseled regarding cessation for more than 28 minutes Dyslipidemia 10 year ASCVD risk 18% Atorvastatin 40 mg HS daily DVT prophylaxis on hold given hematuria: SCDs Plan discussed with the patient in which all questions have been answered Goals of care discussed with the patient for more than 28 minutes, full code status Case discussed with Dr. Stein Plan discussed with: Patient My Orders My Orders Orders - SUKHI BURNHAM RESIDENT Procedure Category Date Status Time Echo 2d Mode Cardiac US 08/11/24 Resulted DOP 13:46 Carvedilol Tablet PHA 08/12/24 In Process (Coreg Tablet) 22:00 *Dr. [facility] CONS 08/12/24 Transmitted -[place] 10:50 Ertapenem Sod Inj PHA 08/13/24 In Process (Invanz) 10:00 * Surgical Consult CONS 08/12/24 Transmitted Morphine Sulfate PHA 08/12/24 Logged Injection 12:00 * Manager Track CONS 08/12/24 Transmitted Consult Date of Service: Aug 12, 2024 Billing Provider: NATHALIA STEIN MD Common Visit Codes: 03345-UHZ/OBS DISCH DAY >30min SUKHI BURNHAM RESIDENT Aug 12, 2024 12:44 NATHALIA STEIN MD Aug 12, 2024 22:54
--- NOTE | 2024-08-12 13:10 | DVHINCON2 ---
Date of service: Aug 12, [address] Garza Reason for Consultation Acute kidney injury History of Present Illness Patient is a 69-year-old male with past medical history significant for hypertension who just had a reversal of colostomy few days ago was sent home with a Tiwari patient admitted for abdominal and penile pain. On admission patient found to have elevated BUN creatinine nephrology is consulted for acute kidney injury Past Medical History PAST MEDICAL HISTORY: HTN Past Surgical History Surgical History (Other): Colostomy reversal Allergies: Coded Allergies: No Known Drug Allergy (Verified Allergy, Unknown, 08/10/24) Home Meds Reported Medications Apixaban Base (ELIQUIS) 5 Mg Tab, 5 MG PO BID, TAB 08/10/24 Apixaban Base (ELIQUIS) 5 Mg Tab, 1 08/10/24 Carvedilol (Carvedilol) 3.125 Mg Tab, 1 TAB PO DAILY 08/10/24 Furosemide (Furosemide) 20 Mg Tab, 1 TAB PO DAILY 08/10/24 Atorvastatin Calcium (ATORVASTATIN CALCIUM) 40 Mg Tab, 1 TAB PO DAILY 08/10/24 Current Medications Current Medications Medications (Trade) Dose Ordered Sig/Saad Route PRN Reason Start Time Stop Time Status Last Admin Atorvastatin Calcium (Lipitor) 40 mg HS PO 08/11/24 22:00 08/11/24 22:54 Carvedilol (Coreg Tablet) 3.125 mg Q12HR PO 08/12/24 22:00 Ertapenem 0.5 gm/ Sodium Chloride 50 ml @ 100 mls/hr DAILY IV 08/13/24 10:00 08/12/24 11:21 DC Ertapenem 1 gm/ Sodium Chloride 50 ml @ 100 mls/hr DAILY IV 08/13/24 10:00 Morphine Sulfate 2 mg Q3HPRN PRN IV SEVERE PAIN (7-10 PAIN SCALE) 08/12/24 12:00 Family History: Patient reports no known family medical history. Review of Systems All 12 item review of systems reviewed with the patient nonsignificant except what is mentioned in the history of present illness H&P Exam Vital Signs/I&O Vital Sign Date Time Temp Pulse Resp B/P (MAP) Pulse Ox O2 Delivery O2 Flow Rate FiO2 08/12/24 12:37 98.0 73 16 109/72 (84) 97 98.0 08/12/24 08:15 Room Air* 0 21 Intake and Output 08/11/24 08/12/24 19:00 07:00 Intake Total 1058 ml 80 ml Output Total 3850 ml Balance -2792 ml 80 ml Intake Oral 1008 ml 80 ml IV Total 50 ml Output Urine Total 3850 ml # Bowel Movements 8 Physical Exam Patient is awake alert Lungs clear to auscultation bilaterally Cardiac exam regular rate and rhythm GI soft nontender Tiwari catheter Extremities no clubbing cyanosis or edema Neuro nonfocal Labs/Diagnostic Data Labs/Diagnostic Data Laboratory Tests Test 08/12/24 13:07 08/11/24 06:19 08/10/24 21:15 08/10/24 13:50 Range/Units White Blood Count 10.6 # 7.4 # 4.4-10.8 10^3/uL Red Blood Count 3.63 L 3.81 L 4.5-5.90 10^6/uL Hemoglobin 11.1 L 11.7 L 13.5-17.5 g/dL Hematocrit 33.7 L 34.8 L 41.0-53.0 % Mean Corpuscular Volume 92.9 91.3 80.0-100.0 fL Mean Corpuscular Hemoglobin 30.6 30.6 28.0-32.0 pg Mean Corpuscular Hemoglobin Concent 32.9 33.5 32.0-36.0 g/dL Red Cell Distribution Width 13.8 13.4 11.8-14.3 % Platelet Count 202 167 140-450 10^3/uL Mean Platelet Volume 8.5 8.6 6.9-10.8 fL Neutrophils (%) (Auto) 70.0 65.1 37.0-80.0 % Lymphocytes (%) (Auto) 14.3 17.2 10.0-50.0 % Monocytes (%) (Auto) 13.4 H 13.5 H 0.0-12.0 % Eosinophils (%) (Auto) 1.8 3.5 0.0-7.0 % Basophils (%) (Auto) 0.5 0.7 0.0-2.0 % Neutrophils # (Auto) 7.4 4.8 1.6-8.6 10 ^3/uL Lymphocytes # (Auto) 1.5 1.3 0.4-5.4 10 ^3/uL Monocytes # (Auto) 1.4 H 1.0 0-1.3 10 ^3/uL Eosinophils # (Auto) 0.2 0.3 0-0.8 10 ^3/uL Basophils # (Auto) 0.1 0.1 0-0.2 10 ^3/uL Nucleated Red Blood Cells 0.1 0.1 % Sodium Level 140 142 136-145 mmol/L Potassium Level 3.8 3.7 3.5-5.1 mmol/L Chloride Level 107 110 H 98-107 mmol/L Carbon Dioxide Level 24 25 20-31 mmol/L Anion Gap 9 7 5-15 Blood Urea Nitrogen 30 H 38 H 9-23 mg/dL Creatinine 1.60 H 1.83 H 0.700-1.30 mg/dL Glomerular Filtration Rate Calc 47 40 >90 mL/min BUN/Creatinine Ratio 18.8 20.8 H 10.0-20.0 Serum Glucose 136 H 83 74-106 mg/dL Calcium Level 8.8 8.9 8.7-10.4 mg/dL Phosphorus Level 2.3 L 2.4-5.1 mg/dL Magnesium Level 1.7 1.8 1.6-2.6 mg/dL Hemoglobin A1c 5.3 <5.7 % A1C Total Bilirubin 0.6 0.2-1.0 mg/dL Aspartate Amino Transferase (AST) 22 13-40 U/L Alanine Aminotransferase (ALT) 21 7-40 U/L Alkaline Phosphatase 66 46-116 U/L B-Type Natriuretic Peptide 333.24 0-100 pg/mL Total Protein 5.9 5.7-8.2 g/dL Albumin 3.4 3.2-4.8 g/dL Vitamin B12 Level 414 211-911 pg/mL Vitamin D 25-Hydroxy 36.5 30.0-100 ng/mL Thyroid Stimulating Hormone (TSH) 9.22 H 0.55-4.78 uIU/mL Free Thyroxine (T4) Calculated 1.55 0.89-1.76 ng/dL Total Triiodothyronine (TT3) 1.17 0.60-1.81 ng/mL Stool Occult Blood Positive x 1 Negative Stool Occult Blood Sample #3 Negative Triglycerides Level 108 < 150 mg/dL Cholesterol Level 88 < 200 mg/dL LDL Cholesterol 38 < 100 mg/dL HDL Cholesterol 29 L 40-59 mg/dL Test 08/10/24 04:35 3/8/25 22:50 Range/Units Urine Color Dark red Yellow Urine Clarity Turbid H Clear Urine pH 8.5 5.0-9.0 Urine Specific [place] 1.022 1.001-1.035 Urine Protein 3+ H Negative Urine Ketones Negative Negative Urine Blood 2+ H Negative /uL Urine Nitrite Negative Negative Urine Bilirubin Negative Negative Urine Urobilinogen 1 H Negative mg/dL Urine Leukocyte Esterase 3+ Negative /uL Urine RBC 89968 0 - 3 /hpf Urine Microscopic WBC 999 H 0-3 /HPF Urine Squamous Epithelial Cells None seen <5 /hpf Urine Bacteria Many H None Seen /hpf Urine Glucose Normal Normal mg/dL White Blood Count 11.1 H 4.4-10.8 10^3/uL Red Blood Count 3.98 L 4.5-5.90 10^6/uL Hemoglobin 12.5 L 13.5-17.5 g/dL Hematocrit 36.8 L 41.0-53.0 % Mean Corpuscular Volume 92.4 80.0-100.0 fL Mean Corpuscular Hemoglobin 31.5 28.0-32.0 pg Mean Corpuscular Hemoglobin Concent 34.1 32.0-36.0 g/dL Red Cell Distribution Width 13.8 11.8-14.3 % Platelet Count 183 140-450 10^3/uL Mean Platelet Volume 8.3 6.9-10.8 fL Neutrophils (%) (Auto) 75.6 37.0-80.0 % Lymphocytes (%) (Auto) 12.0 10.0-50.0 % Monocytes (%) (Auto) 10.7 0.0-12.0 % Eosinophils (%) (Auto) 1.3 0.0-7.0 % Basophils (%) (Auto) 0.4 0.0-2.0 % Neutrophils # (Auto) 8.4 1.6-8.6 10 ^3/uL Lymphocytes # (Auto) 1.3 0.4-5.4 10 ^3/uL Monocytes # (Auto) 1.2 0-1.3 10 ^3/uL Eosinophils # (Auto) 0.1 0-0.8 10 ^3/uL Basophils # (Auto) 0 0-0.2 10 ^3/uL Nucleated Red Blood Cells 0.0 % Prothrombin Time 11.4 9.3-11.8 sec Prothrombin Time INR 1.08 0.9-1.15 Sodium Level 139 136-145 mmol/L Potassium Level 3.3 L 3.5-5.1 mmol/L Chloride Level 104 98-107 mmol/L Carbon Dioxide Level 22 20-31 mmol/L Anion Gap 13 5-15 Blood Urea Nitrogen 44 H 9-23 mg/dL Creatinine 2.11 H 0.700-1.30 mg/dL Glomerular Filtration Rate Calc 33 >90 mL/min BUN/Creatinine Ratio 20.9 H 10.0-20.0 Serum Glucose 128 H 74-106 mg/dL Calcium Level 9.6 8.7-10.4 mg/dL Total Bilirubin 0.7 0.2-1.0 mg/dL Aspartate Amino Transferase (AST) 24 13-40 U/L Alanine Aminotransferase (ALT) 23 7-40 U/L Alkaline Phosphatase 75 46-116 U/L Total Protein 6.9 5.7-8.2 g/dL Albumin 4.0 3.2-4.8 g/dL Microbiology Date/Time Source Procedure Growth Status 08/10/24 20:00 Nose MRSA Screen - Final Complete 08/10/24 04:35 Voided Urine Urine Culture - Final Proteus mirabilis - ESBL Complete Assessment Acute kidney injury superimposed Chronic Kidney Disease secondary hemodynamic mediated Urinary tract infection Indwelling Tiwari catheter Status post reversal of colostomy Fecal occult blood positive Anemia due to blood loss hypokalemia Recommendations Closely monitor fluid and electrolytes Avoid nephrotoxic medications Strict I&Os Check urine electrolytes and urine protein excretion Kidney ultrasound reported bilateral small kidney KCL replacement IV antibiotics GI consult We will continue to follow Patient seen and examined by myself. I discussed my plan of care with the patient and primary nurse at the bedside I would like to thank Dr. Garza for the consult, will follow up Plan discussed with: Patient LAYNE CHOW MD Aug 12, 2024 13:10
[2024-08-12 13:41] LABS: Basophils # (auto) 0.1 10 ^3/uL (0-0.2); Basophils % (auto) 0.5 % (0.0-2.0); Eosinophils # (auto) 0.2 10 ^3/uL (0-0.8); Eosinophils % (auto) 1.8 % (0.0-7.0); Hematocrit 33.7 % (41.0-53.0); Hemoglobin 11.1 g/dL (13.5-17.5); Lymphocytes # (auto) 1.5 10 ^3/uL (0.4-5.4); Lymphocytes % (auto) 14.3 % (10.0-50.0); Mean Corpuscular Hemoglobin 30.6 pg (28.0-32.0); Mean Corpuscular Hgb Conc. 32.9 g/dL (32.0-36.0); Mean Corpuscular Volume 92.9 fL (80.0-100.0); Monocytes # (auto) 1.4 10 ^3/uL (0-1.3); Monocytes % (auto) 13.4 % (0.0-12.0); Neutrophils # (auto) 7.4 10 ^3/uL (1.6-8.6); Nucleated Red Blood Cells % 0.1 %; Platelet Count (auto) 202 10^3/uL (140-450); Red Blood Cells 3.63 10^6/uL (4.5-5.90); Red Cell Distribution Width 13.8 % (11.8-14.3); White Blood Cell 10.6 10^3/uL (4.4-10.8)
[2024-08-12 13:48] LABS: Potassium 3.8 mmol/L (3.5-5.1); Sodium 140 mmol/L (136-145)
[2024-08-12 13:49] LABS: Anion Gap 9 (5-15); Carbon Dioxide 24 mmol/L (20-31)
[2024-08-12 13:50] LABS: Calcium 8.8 mg/dL (8.7-10.4)
[2024-08-12 13:52] LABS: Chloride 107 mmol/L (98-107)
[2024-08-12 13:54] LABS: BUN/Creatinine Ratio 18.8 (10.0-20.0)
[2024-08-12 13:55] LABS: Blood Urea Nitrogen 30 mg/dL (9-23); Glucose 136 mg/dL (74-106)
[2024-08-12 14:15] LABS: Magnesium 1.7 mg/dL (1.6-2.6)
[2024-08-12 14:18] LABS: Phosphorus 2.3 mg/dL (2.4-5.1)
--- NOTE | 2024-08-12 14:38 | DVHINCON2 ---
GI Consult Consult Note GI consult note Date of Consultation: 08/12/2024 Chief Complaint: Hematochezia Referring Physician: Dr. Flores H&P: 69-year-old male with PMH CHF, AFib on Eliquis, CKD, hyperlipidemia, and depression, SP colostomy reversal on 08/04/2024, presented to ER with penile urinary problems. And complains of hematuria Patient having loose stool with maroon colored stool, four episodes today No abdominal pain. No nausea or vomiting. Denies fevers and chills Patient had colon surgery about 40 months ago, possible diagnosis of colon cancer per patient Unsure about last colonoscopy Past Medical History: CHF, AFib on Eliquis, CKD, hyperlipidemia, depression Past Surgical History: Colon resection, colostomy reversal 08/04/2024 Social History: NO smoking, drinking ETOH and use of illegal drugs. Family History: Noncontributory Review of Systems: Constitutional: no fever, chill, weight loss Heart: no chest pain, no chest pressure Lung: no cough, no dyspnea with exertion Abdomen: see HPI : Hematuria Physical exam: General: NAD, AAOX3 Chest: lung gerardo clear to auscultation Heart: RRR, no murmur Abdomen: non-distended, no tenderness to palpation, +BS Labs:Laboratory Tests Test 08/11/24 06:19 08/10/24 21:15 08/10/24 13:50 08/10/24 04:35 Range/Units White Blood Count 7.4 # 4.4-10.8 10^3/uL Red Blood Count 3.81 L 4.5-5.90 10^6/uL Hemoglobin 11.7 L 13.5-17.5 g/dL Hematocrit 34.8 L 41.0-53.0 % Mean Corpuscular Volume 91.3 80.0-100.0 fL Mean Corpuscular Hemoglobin 30.6 28.0-32.0 pg Mean Corpuscular Hemoglobin Concent 33.5 32.0-36.0 g/dL Red Cell Distribution Width 13.4 11.8-14.3 % Platelet Count 167 140-450 10^3/uL Mean Platelet Volume 8.6 6.9-10.8 fL Neutrophils (%) (Auto) 65.1 37.0-80.0 % Lymphocytes (%) (Auto) 17.2 10.0-50.0 % Monocytes (%) (Auto) 13.5 H 0.0-12.0 % Eosinophils (%) (Auto) 3.5 0.0-7.0 % Basophils (%) (Auto) 0.7 0.0-2.0 % Neutrophils # (Auto) 4.8 1.6-8.6 10 ^3/uL Lymphocytes # (Auto) 1.3 0.4-5.4 10 ^3/uL Monocytes # (Auto) 1.0 0-1.3 10 ^3/uL Eosinophils # (Auto) 0.3 0-0.8 10 ^3/uL Basophils # (Auto) 0.1 0-0.2 10 ^3/uL Nucleated Red Blood Cells 0.1 % Sodium Level 142 136-145 mmol/L Potassium Level 3.7 3.5-5.1 mmol/L Chloride Level 110 H 98-107 mmol/L Carbon Dioxide Level 25 20-31 mmol/L Anion Gap 7 5-15 Blood Urea Nitrogen 38 H 9-23 mg/dL Creatinine 1.83 H 0.700-1.30 mg/dL Glomerular Filtration Rate Calc 40 >90 mL/min BUN/Creatinine Ratio 20.8 H 10.0-20.0 Serum Glucose 83 74-106 mg/dL Hemoglobin A1c 5.3 <5.7 % A1C Calcium Level 8.9 8.7-10.4 mg/dL Magnesium Level 1.8 1.6-2.6 mg/dL Total Bilirubin 0.6 0.2-1.0 mg/dL Aspartate Amino Transferase (AST) 22 13-40 U/L Alanine Aminotransferase (ALT) 21 7-40 U/L Alkaline Phosphatase 66 46-116 U/L B-Type Natriuretic Peptide 333.24 0-100 pg/mL Total Protein 5.9 5.7-8.2 g/dL Albumin 3.4 3.2-4.8 g/dL Vitamin B12 Level 414 211-911 pg/mL Vitamin D 25-Hydroxy 36.5 30.0-100 ng/mL Thyroid Stimulating Hormone (TSH) 9.22 H 0.55-4.78 uIU/mL Free Thyroxine (T4) Calculated 1.55 0.89-1.76 ng/dL Total Triiodothyronine (TT3) 1.17 0.60-1.81 ng/mL Stool Occult Blood Positive x 1 Negative Stool Occult Blood Sample #3 Negative Triglycerides Level 108 < 150 mg/dL Cholesterol Level 88 < 200 mg/dL LDL Cholesterol 38 < 100 mg/dL HDL Cholesterol 29 L 40-59 mg/dL Urine Color Dark red Yellow Urine Clarity Turbid H Clear Urine pH 8.5 5.0-9.0 Urine Specific [place] 1.022 1.001-1.035 Urine Protein 3+ H Negative Urine Ketones Negative Negative Urine Blood 2+ H Negative /uL Urine Nitrite Negative Negative Urine Bilirubin Negative Negative Urine Urobilinogen 1 H Negative mg/dL Urine Leukocyte Esterase 3+ Negative /uL Urine RBC 71018 0 - 3 /hpf Urine Microscopic WBC 999 H 0-3 /HPF Urine Squamous Epithelial Cells None seen <5 /hpf Urine Bacteria Many H None Seen /hpf Urine Glucose Normal Normal mg/dL Test 08/09/24 22:50 Range/Units White Blood Count 11.1 H 4.4-10.8 10^3/uL Red Blood Count 3.98 L 4.5-5.90 10^6/uL Hemoglobin 12.5 L 13.5-17.5 g/dL Hematocrit 36.8 L 41.0-53.0 % Mean Corpuscular Volume 92.4 80.0-100.0 fL Mean Corpuscular Hemoglobin 31.5 28.0-32.0 pg Mean Corpuscular Hemoglobin Concent 34.1 32.0-36.0 g/dL Red Cell Distribution Width 13.8 11.8-14.3 % Platelet Count 183 140-450 10^3/uL Mean Platelet Volume 8.3 6.9-10.8 fL Neutrophils (%) (Auto) 75.6 37.0-80.0 % Lymphocytes (%) (Auto) 12.0 10.0-50.0 % Monocytes (%) (Auto) 10.7 0.0-12.0 % Eosinophils (%) (Auto) 1.3 0.0-7.0 % Basophils (%) (Auto) 0.4 0.0-2.0 % Neutrophils # (Auto) 8.4 1.6-8.6 10 ^3/uL Lymphocytes # (Auto) 1.3 0.4-5.4 10 ^3/uL Monocytes # (Auto) 1.2 0-1.3 10 ^3/uL Eosinophils # (Auto) 0.1 0-0.8 10 ^3/uL Basophils # (Auto) 0 0-0.2 10 ^3/uL Nucleated Red Blood Cells 0.0 % Prothrombin Time 11.4 9.3-11.8 sec Prothrombin Time INR 1.08 0.9-1.15 Sodium Level 139 136-145 mmol/L Potassium Level 3.3 L 3.5-5.1 mmol/L Chloride Level 104 98-107 mmol/L Carbon Dioxide Level 22 20-31 mmol/L Anion Gap 13 5-15 Blood Urea Nitrogen 44 H 9-23 mg/dL Creatinine 2.11 H 0.700-1.30 mg/dL Glomerular Filtration Rate Calc 33 >90 mL/min BUN/Creatinine Ratio 20.9 H 10.0-20.0 Serum Glucose 128 H 74-106 mg/dL Calcium Level 9.6 8.7-10.4 mg/dL Total Bilirubin 0.7 0.2-1.0 mg/dL Aspartate Amino Transferase (AST) 24 13-40 U/L Alanine Aminotransferase (ALT) 23 7-40 U/L Alkaline Phosphatase 75 46-116 U/L Total Protein 6.9 5.7-8.2 g/dL Albumin 4.0 3.2-4.8 g/dL Microbiology Date/Time Source Procedure Growth Status 08/10/24 20:00 Nose MRSA Screen - Final Complete 08/10/24 04:35 Voided Urine Urine Culture - Final Proteus mirabilis - ESBL Complete Imaging: CT abdomen pelvis IMPRESSION: Possible 2 mm left proximal ureteral stone. No definite left hydroureter nephrosis. Atrophic left kidney. Gallstones. Postsurgical changes involving the left lower quadrant with left lower quadrant colostomy reversal. Inflammatory changes involve the left lower quadrant, likely postsurgical in nature. Large right inguinal hernia containing loop of bowel. Assessment: Hematochezia possibly secondary to inflammation with colostomy reversal Acute cystitis with ESBL Proteus Anemia LIDIA Right inguinal hernia Plan: -discussed with Dr. Quintero Bleeding most likely secondary to postop surgical changes Monitor lab Conservative management recommended We will continue to monitor the patient Thank you for this consult Date of Service: Aug 12, 2024 Billing Provider: MAYTE AGUILLON Common Visit Codes: CONSULT ONLY Consultation Codes: [id number] CONSULT <45MIN, [id number] CONSULT <60MIN MAYTE AGUILLON Aug 12, 2024 14:38
--- NOTE | 2024-08-12 15:36 | DVHDSRES ---
Discharge Summary Date of Admission Resident Creating Document: SUKHI BURNHAM RESIDENT Aug 10, 2024 at 09:29 Date of Discharge: Aug 12, 2024 Labs/Diagnostic Data: Laboratory Results Test 08/12/24 13:07 08/11/24 06:19 08/10/24 21:15 08/10/24 13:50 White Blood Count 10.6 10^3/uL (4.4-10.8) Red Blood Count 3.63 10^6/uL (4.5-5.90) Hemoglobin 11.1 g/dL (13.5-17.5) Hematocrit 33.7 % (41.0-53.0) Mean Corpuscular Volume 92.9 fL (80.0-100.0) Mean Corpuscular Hemoglobin 30.6 pg (28.0-32.0) Mean Corpuscular Hemoglobin Concent 32.9 g/dL (32.0-36.0) Red Cell Distribution Width 13.8 % (11.8-14.3) Platelet Count 202 10^3/uL (140-450) Mean Platelet Volume 8.5 fL (6.9-10.8) Neutrophils (%) (Auto) 70.0 % (37.0-80.0) Lymphocytes (%) (Auto) 14.3 % (10.0-50.0) Monocytes (%) (Auto) 13.4 % (0.0-12.0) Eosinophils (%) (Auto) 1.8 % (0.0-7.0) Basophils (%) (Auto) 0.5 % (0.0-2.0) Neutrophils # (Auto) 7.4 10 ^3/uL (1.6-8.6) Lymphocytes # (Auto) 1.5 10 ^3/uL (0.4-5.4) Monocytes # (Auto) 1.4 10 ^3/uL (0-1.3) Eosinophils # (Auto) 0.2 10 ^3/uL (0-0.8) Basophils # (Auto) 0.1 10 ^3/uL (0-0.2) Nucleated Red Blood Cells 0.1 % Sodium Level 140 mmol/L (136-145) Potassium Level 3.8 mmol/L (3.5-5.1) Chloride Level 107 mmol/L (98-107) Carbon Dioxide Level 24 mmol/L (20-31) Anion Gap 9 (5-15) Blood Urea Nitrogen 30 mg/dL (9-23) Creatinine 1.60 mg/dL (0.700-1.30) Glomerular Filtration Rate Calc 47 mL/min (>90) BUN/Creatinine Ratio 18.8 (10.0-20.0) Serum Glucose 136 mg/dL (74-106) Calcium Level 8.8 mg/dL (8.7-10.4) Phosphorus Level 2.3 mg/dL (2.4-5.1) Magnesium Level 1.7 mg/dL (1.6-2.6) Parathyroid Hormone (Intact) 131.3 pg/mL (18.4-80.1) Hemoglobin A1c 5.3 % A1C (<5.7) Total Bilirubin 0.6 mg/dL (0.2-1.0) Aspartate Amino Transferase (AST) 22 U/L (13-40) Alanine Aminotransferase (ALT) 21 U/L (7-40) Alkaline Phosphatase 66 U/L (46-116) B-Type Natriuretic Peptide 333.24 pg/mL (0-100) Total Protein 5.9 g/dL (5.7-8.2) Albumin 3.4 g/dL (3.2-4.8) Vitamin B12 Level 414 pg/mL (211-911) Vitamin D 25-Hydroxy 36.5 ng/mL (30.0-100) Thyroid Stimulating Hormone (TSH) 9.22 uIU/mL (0.55-4.78) Free Thyroxine (T4) Calculated 1.55 ng/dL (0.89-1.76) Total Triiodothyronine (TT3) 1.17 ng/mL (0.60-1.81) Stool Occult Blood Positive x 1 (Negative) Stool Occult Blood Sample #3 (Negative) Triglycerides Level 108 mg/dL (< 150) Cholesterol Level 88 mg/dL (< 200) LDL Cholesterol 38 mg/dL (< 100) HDL Cholesterol 29 mg/dL (40-59) Test 08/10/24 04:35 08/09/24 22:50 Urine Color Dark red (Yellow) Urine Clarity Turbid (Clear) Urine pH 8.5 (5.0-9.0) Urine Specific [place] 1.022 (1.001-1.035) Urine Protein 3+ (Negative) Urine Ketones Negative (Negative) Urine Blood 2+ /uL (Negative) Urine Nitrite Negative (Negative) Urine Bilirubin Negative (Negative) Urine Urobilinogen 1 mg/dL (Negative) Urine Leukocyte Esterase 3+ /uL (Negative) Urine RBC 96006 /hpf (0 - 3) Urine Microscopic WBC 999 /HPF (0-3) Urine Squamous Epithelial Cells None seen /hpf (<5) Urine Bacteria Many /hpf (None Seen) Urine Glucose Normal mg/dL (Normal) Prothrombin Time 11.4 sec (9.3-11.8) Prothrombin Time INR 1.08 (0.9-1.15) Other Laboratory Tests 08/12/24 13:07 Brief Hx & Hospital Course: Mr. Moody is a 69-year-old male past medical history of questionable congestive heart failure, atrial fibrillation on Eliquis-last dose 08/10, ostomy done 40 months back, reversal 08/07, inguinal hernia who presented to the ER with a chief complaint hematuria, inability to urinate and bloody stools. Was admitted in [facility] for this back for reversal of colostomy, following which he went home and developed urinary retention, pain and dysuria while urinating for the past 2 days. He reports taking Eliquis last dose 08/10. Also reports fresh red bleeding per rectum for the past day. Denies abdominal pain, fever, chills, nausea, vomiting. On admission, Tiwari catheter was placed. Now draining dark yellow urine. UA showed 3+ leukocyte esterase, 999 WBC +RBCs. H and H was 2/36 on arrival. Past medical/surgical history: See above Home medications: Entresto, clonidine, Coreg, aspirin Allergic history: None Social history: Smokes 10 cigarettes per day for the past more than 30 years, drinks socially, denies illicit drug use During the hospitalization patient was diagnosed with acute urinary retention and a Tiwari catheter was placed, patient had UTI and urine culture showed ESBL Proteus sensitive to ertapenem and meropenem. Patient received IV ceftriaxone initially which was switched to IV ertapenem which was supposed to be continued till 2 weeks. Occult blood was positive, patient had 5 bowel movements which were soft and maroon, IV pantoprazole and Carafate was started. GI was consulted-recommended Bleeding most likely secondary to postop surgical changes. Recommended conservative measures. Surgical consult was pending. CT scan showed large right inguinal hernia containing loop of bowel Outpatient workup advised. Prelim blood cultures were negative. Mmi Teacher was consulted, recommended okay to DC with Tiwari catheter. Patient is Entresto and Eliquis were kept on hold given the bleeding and LIDIA. 08/12-patient decided to leave AMA during ongoing evaluation, risk and benefits were discussed. Was alert and oriented. Discharge diagnosis: Acute cystitis - ESBL Proteus ? Acute urinary retention Left nephrolithiasis Fresh red bleeding per rectum Occult positive History of colostomy reversal 08/07 at [facility] Gallstones, no acute cholecystitis Right inguinal hernia-nontender, nonerythematous, not incarcerated Chronic Systolic Congestive heart failure LIDIA, likely vasomotor mediated on ? CKD Anemia likely normocytic secondary to CKD Persistent atrial fibrillation on Eliquis Chronic nicotine dependence Nicotine patch Dyslipidemia Operations or Procedures ORDERING PHYSICIAN: MAGGIE RODRIGUEZ MD PROCEDURE(s): ABPL - CT AB PEL WO CON-NO ORAL OR IV REASON: Hematuria, status post colostomy reversal ORDER NUMBER(s): [id number], ACCESSION NUMBER(s): [id number] Exam: CT CT AB PEL WO CON-NO ORAL OR IV History: Hematuria, status post colostomy reversal Comparison Study: None available at time of dictation. TECHNIQUE: Multidetector CT of the abdomen was performed from lung bases to pubic symphysis. Imaging was performed without IV contrast. Axial, coronal and sagittal multiplanar reformats were obtained from the axial data set by the technologist. Radiation Dose Information: CT Dose: CTDI volume is 25 mGy. Dose-length product is 250 mGy*cm FINDINGS: Evaluation of solid organs is limited due to lack of intravenous contrast use. Findings: Lung Bases: No acute or significant lung base finding. Normal heart size. No pleural or pericardial effusion. Liver: The liver is normal in size. No focal lesions. Gallbladder and Biliary Tree:gallstones Spleen: Unremarkable Pancreas: The pancreas is grossly normal in appearance. Adrenal Glands: Unremarkable Kidneys: Possible 2 mm left proximal ureteral stone. No definite left hydroureter nephrosis. Atrophic left kidney. Bladder: Tiwari catheter within the bladder. Bowel: The stomach is grossly normal in appearance. Small bowel and colon are normal in caliber and distribution. The appendix is not visualized; however, no secondary findings of acute appendicitis identified. Ascites: Absent Lymphadenopathy: No mesenteric, retroperitoneal or periportal lymphadenopathy. Abdominal Wall and Mesentery: Large right inguinal hernia containing loop of bowel. Vasculature: The visualized abdominal aorta is normal in size and caliber. Evaluation of abdominal and pelvic vessels is limited due to lack of intravenous contrast. Pelvic Organs: Unremarkable Musculoskeletal: No aggressive focal bony lesions, acute fractures or dislocation. Soft tissues: Unremarkable IMPRESSION: Possible 2 mm left proximal ureteral stone. No definite left hydroureter nephrosis. Atrophic left kidney. Gallstones. Postsurgical changes involving the left lower quadrant with left lower quadrant colostomy reversal. Inflammatory changes involve the left lower quadrant, likely postsurgical in nature. Large right inguinal hernia containing loop of bowel. Radiation optimization: All CT scans at this facility use at least one of these dose optimization techniques: automated exposure control mA and/or kV adjustment per patient size (includes targeted exams where dose is matched to clinical indication) or iterative reconstruction. ATED BY: RODO HALL MD DICTATED DATE/TIME: 08/10/2427 SIGNED BY: RODO HALL MD SIGNED DATE/TIME: 08/10/2427 CC: Condition at Discharge: Undetermined Final Diagnosis/Problems List Acute cystitis - ESBL Proteus ? Acute urinary retention Left nephrolithiasis Fresh red bleeding per rectum Occult positive History of colostomy reversal 08/07 at [facility] Gallstones, no acute cholecystitis Right inguinal hernia-nontender, nonerythematous, not incarcerated Chronic Systolic Congestive heart failure LIDIA, likely vasomotor mediated on ? CKD Anemia likely normocytic secondary to CKD Persistent atrial fibrillation on Eliquis Chronic nicotine dependence Nicotine patch Dyslipidemia Discharge Disposition: AMA Discharge Statement: "Patient was advised to return to the ER or call 911 if any headaches, dizziness, shortness of breath, chest pain, abdominal pain, bleeding, fevers, or worsening of medical condition. Patient was counseled about treatment plan, medications, possible side effects, patientverbalized understanding. All questions were answered to the best of my ability. This discharge took greater then 30 minutes in planning, reviewing documentation, counseling the patient, and discussing with other team members." ASSESSMENT ASSESSMENT Assessment Date of Service: Aug 12, 2024 Billing Provider: NATHALIA STEIN MD Common Visit Codes: 47463-UAZ/OBS DISCH DAY >30min SUKHI BURNHAM RESIDENT Aug 12, 2024 15:36 NATHALIA STEIN MD Aug 12, 2024 22:53
[2024-08-12] MEDS ORDERED: CARVEDILOL 3.125 MG TAB PO SCH (22:00)
[2024-08-13 08:07] LABS: PSA Free 0.16 ng/mL; Prostate Specific Antigen 0.8 ng/mL (0.0-4.0)
[2024-08-13] MEDS ORDERED: ERTAPENEM SOD INJ 0.5 GM in SODIUM CHL 0.9% 50 ML IV SCH (10:00)
[2024-08-13] MEDS ORDERED: ERTAPENEM SOD INJ 1 GM in SODIUM CHL 0.9% 50 ML IV SCH (10:00)
== END 2024-08-12 15:20 | disposition left against medical advice (07) | DRG 689 ==
LOC: EDBD 21:46 → ER 21:46 → OVERFLOW 08-10 09:29 → EAST 08-10 12:08
PROVIDERS: ADMIT Internal Medicine; ATTEND Emergency Medicine
DX: N30.01 Acute cystitis with hematuria (principal); N17.0 Acute kidney failure with tubular necrosis; I48.19 Other persistent atrial fibrillation; I13.0 Hypertensive heart and chronic kidney disease with heart failure and stage 1 through stage 4 chronic kidney disease, or unspecified chronic kidney disease; I50.22 Chronic systolic (congestive) heart failure; E78.5 Hyperlipidemia, unspecified; Z53.29 Procedure and treatment not carried out because of patient's decision for other reasons; N18.32 Chronic kidney disease, stage 3b; K80.20 Calculus of gallbladder without cholecystitis without obstruction; D50.0 Iron deficiency anemia secondary to blood loss (chronic); N20.0 Calculus of kidney; B96.89 Other specified bacterial agents as the cause of diseases classified elsewhere; F17.210 Nicotine dependence, cigarettes, uncomplicated; E87.6 Hypokalemia; K40.90 Unilateral inguinal hernia, without obstruction or gangrene, not specified as recurrent; F32.A Depression, unspecified; F17.200 Nicotine dependence, unspecified, uncomplicated; Z71.6 Tobacco abuse counseling; Z79.2 Long term (current) use of antibiotics; Z79.899 Other long term (current) drug therapy; Z79.84 Long term (current) use of oral hypoglycemic drugs; Z93.3 Colostomy status; Z79.01 Long term (current) use of anticoagulants
CPT/HCPCS: 36415; 71045; 74176; 76775; 80048; 80053; 80061; 81001; 82270; 82306; 82607; 83036; 83735; 83880; 83970; 84100; 84154; 84439; 84443; 84480; 85025; 85610; 87040; 87081; 87086; 87088; 87186; 93005; 93306; 96361; 96365; 96375; G0378; J1335; J2405; J2470

== ENCOUNTER 2025-05-19 07:00 | Inpatient (IN) | payer MEDICARE, MEDICAID ==
[~2025-05-19] VITALS: Ht 172.7 cm; Wt 79.9 kg
[~2025-05-19 07:00] MED LIST: APIX5TAB; APIX5TAB PO; ATOR40TA52 PO; CARV3.1240 PO; FURO20TA4 PO
--- NOTE | 2025-05-19 07:04 | ECG ---
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
--- NOTE | 2025-05-19 07:09 | ED.PDOC ---
GI ASSESSMENT HPI Comments 70 year old male with PMHx HTN, CHF presents to the ED via EMS with a chief complaint of abdominal pain onset last night around 22:00. Per EMS, patient is from [facility], was in his car last night around 22:00, eating [employer] when he began experiencing diffused abdominal pain. Patient noticed his hernia protrudes after eating. Upon EMS arrival, patient was hypertensive, states his BP is always elevated, is not complaint with his medication. Denies fever, chills, nausea, vomiting, diarrhea, headache, dizziness, dysuria, hematuria. No other symptoms or modifying factors present at this time. Time Seen by MD: 07:05 Primary Care Provider: UNKNOWN Reviewed Notes: Medications, Allergies Allergies: Coded Allergies: No Known Drug Allergy (Verified Allergy, Unknown, 08/10/24) Home Meds Reported Medications Apixaban Base (ELIQUIS) 5 Mg Tab, 5 MG PO BID, TAB 08/10/24 Apixaban Base (ELIQUIS) 5 Mg Tab, 1 08/10/24 Carvedilol (Carvedilol) 3.125 Mg Tab, 1 TAB PO DAILY 08/10/24 Furosemide (Furosemide) 20 Mg Tab, 1 TAB PO DAILY 08/10/24 Atorvastatin Calcium (ATORVASTATIN CALCIUM) 40 Mg Tab, 1 TAB PO DAILY 08/10/24 Information Source: Patient, Emergency Med Personnel Mode of Arrival: EMS Timing: Hours Duration: Since onset Prehospital treatment: None Quality: Sharp Vomitus: None Severity: Moderate Recent: None Recent Hx of: None Pain Location: Diffuse Modifying Factors: Nothing Associated sign and symptoms: Abdominal Pain Past Medical History PAST MEDICAL HISTORY: Cancer, CKF, HTN Surgical History: Hernia Repair Family History Family History: Reviewed,noncontributory to illness Social History Smoker: Non-Smoker Alcohol: Denies ETOH Use Drugs: Denies Drug Use Lives In: Home Constitutional: denies: chills, diaphoresis, fatigue, fever, malaise, sweats, weakness, others EENTM: denies: blurred vision, double vision, ear bleeding, ear discharge, ear drainage, ear pain, ear ringing, eye pain, eye redness, hearing loss, mouth pain, mouth swelling, nasal discharge, nose bleeding, nose congestion, nose pain, photophobia, tearing, throat pain, throat swelling, voice changes, others Respiratory: denies: cough, hemoptysis, orthopnea, SOB at rest, shortness of breath, SOB with excertion, stridor, wheezing, others Cardiovascular: denies: chest pain, dizzy spells, diaphoresis, Dyspnea on exertion, edema, irregular heart beat, left arm pain, lightheadedness, palpitations, PND, syncope, others Gastrointestinal: reports: abdominal pain; denies: abdomen distended, blood streaked bowels, constipated, diarrhea, dysphagia, difficulty swallowing, hematemesis, melena, nausea, poor appetite, poor fluid intake, rectal bleeding, rectal pain, vomiting, others Genitourinary: denies: burning, dysuria, flank pain, frequency, hematuria, incontinence, penile discharge, penile sore, pain, testicle pain, testicle swelling, urgency, others Neurological: denies: dizziness, fainting, headache, left sided numbness, left sided weakness, numbness, paresthesia, pre-existing deficit, right sided numbness, right sided weakness, seizure, speech problems, tingling, tremors, weakness, others Musculoskeletal: denies: back pain, gout, joint pain, joint swelling, muscle pain, muscle stiffness, neck pain, others Integumetry: denies: bruises, change in color, change in hair/nails, dryness, laceration, lesions, lumps, rash, wounds, others Allergic/Immunocompromised: denies: Difficulty Healing, Frequent Infections, Hives, Itching, others Hematologic/Lymphatic: denies: anemia, blood clots, easy bleeding, easy bruising, swollen glands, others Endocrine: denies: excessive hunger, excessive sweating, excessive thirst, excessive urination, flushing, intolerance to cold, intolerance to heat, unexplained weight gain, unexplained weight loss, others Psychiatric: denies: anxiety, bipolar disorder, depression, hopeless, panic disorder, schizophrenia, sleepless, suicidal, others All Other Systems: Reviewed and Negative Physical Exam General Appearance: Normal HEENT: Normal ENT Inspection, Pharynx Normal, TMs Normal Neck: Full Range of Motion, Non-Tender, Normal, Normal Inspection Respiratory: Chest Non-Tender, Lungs Clear, No Accessory Muscle Use, No Respiratory Distress, Normal Breath Sounds Cardiovascular: No Edema, No JVD, No Murmur, No Gallop, Normal Peripheral Pulses, Regular Rate/Rhythm Breast Exam: Deferred Gastrointestinal: Diffuse (tenderness), No Organomegaly, Tenderness (diffused), Other (buldging hernia) Genitalia: Deferred Pelvic: Deferred Rectal: Deferred Extremities: No calf tenderness, Normal capillary refill, Normal inspection, Normal range of motion, Non-tender, No pedal edema Musculoskeletal : Apperance: Normal Neurologic: Alert, director of outside 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 Was a procedure done?: No GI differential Dx Differential Diagnosis: Gastritis/PUD, Gastroenteritis, Hernia, Dehydration, Electrolyte Imbalance, Food Poisoning, Bacterial, Viral X-Ray, Labs, Meds, VS Vital Signs Date Time Temp Pulse Resp B/P (MAP) Pulse Ox O2 Delivery O2 Flow Rate FiO2 05/19/25 08:46 97.6 10 18 189/111 (137) 98 97.6 05/19/25 08:17 106 17 189/111 05/19/25 07:47 109 16 179/118 05/19/25 07:20 109 17 96 Room Air* 0 21 05/19/25 07:20 97.6 109 17 179/118 (138) 98 97.6 05/19/25 07:09 108 05/19/25 07:02 108 05/19/25 07:00 98.6 106 20 179/116 99 98.6 Lab Test 05/19/25 10:50 05/19/25 09:40 05/19/25 08:32 05/19/25 07:36 Range/Units Troponin I High Sensitivity Pending 25 </=54 ng/L Urine Color Pending Urine Clarity Pending Urine pH Pending Urine Specific [place] Pending Urine Protein Pending Urine Ketones Pending Urine Blood Pending Urine Nitrite Pending Urine Bilirubin Pending Urine Urobilinogen Pending Urine Leukocyte Esterase Pending Urine RBC Pending Urine Microscopic WBC Pending Urine Squamous Epithelial Cells Pending Urine Bacteria Pending Urine Glucose Pending Sodium Level 140 136-145 mmol/L Potassium Level 5.1 3.5-5.1 mmol/L Chloride Level 110 H 98-107 mmol/L Carbon Dioxide Level 21 20-31 mmol/L Anion Gap 9 5-15 Blood Urea Nitrogen 39 H 9-23 mg/dL Creatinine 2.31 H 0.700-1.30 mg/dL Glomerular Filtration Rate Calc 30 >90 mL/min BUN/Creatinine Ratio 16.9 10.0-20.0 Serum Glucose 117 H 74-106 mg/dL Calcium Level 8.5 L 8.7-10.4 mg/dL White Blood Count 8.1 4.4-10.8 10^3/uL Red Blood Count 4.83 4.5-5.90 10^6/uL Hemoglobin 15.1 13.5-17.5 g/dL Hematocrit 45.0 41.0-53.0 % Mean Corpuscular Volume 93.1 80.0-100.0 fL Mean Corpuscular Hemoglobin 31.3 28.0-32.0 pg Mean Corpuscular Hemoglobin Concent 33.6 32.0-36.0 g/dL Red Cell Distribution Width 12.7 11.8-14.3 % Platelet Count 171 140-450 10^3/uL Mean Platelet Volume 8.7 6.9-10.8 fL Neutrophils (%) (Auto) 74.2 37.0-80.0 % Lymphocytes (%) (Auto) 17.4 10.0-50.0 % Monocytes (%) (Auto) 7.6 0.0-12.0 % Eosinophils (%) (Auto) 0.3 0.0-7.0 % Basophils (%) (Auto) 0.5 0.0-2.0 % Neutrophils # (Auto) 6.0 1.6-8.6 10 ^3/uL Lymphocytes # (Auto) 1.4 0.4-5.4 10 ^3/uL Monocytes # (Auto) 0.6 0-1.3 10 ^3/uL Eosinophils # (Auto) 0 0-0.8 10 ^3/uL Basophils # (Auto) 0 0-0.2 10 ^3/uL Nucleated Red Blood Cells 0.1 % Current Medications Medications (Trade) Dose Ordered Sig/Saad Route Start Time Stop Time Status Last Admin Sodium Chloride 1,000 ml @ 1,000 mls/hr Q1H ONCE IV 05/19/25 07:15 05/19/25 08:14 DC 05/19/25 07:48 Morphine Sulfate 4 mg ONCE ONCE IV 05/19/25 07:15 05/19/25 07:16 DC 05/19/25 07:47 Ondansetron HCl (Zofran) 4 mg ONCE ONCE IV 05/19/25 07:15 05/19/25 07:16 DC 05/19/25 07:[address] [address] Ph: [phone] DIAGNOSTIC IMAGING Diagnostic Imaging Report : [id number] Signed PATIENT: ALLY GALLO ACCT: [id number] UNIT: [id number] : 1955 LOC: ER ROOM / BED: / AGE / SEX: 70 / M ADM STATUS: REG ER SERVICE 4 ORDERING PHYSICIAN: AZUL SALAS MD PROCEDURE(s): CXRP - CHEST PORTABLE REASON: abd pain ORDER NUMBER(s): [id number], ACCESSION NUMBER(s): [id number] INDICATION: abd pain TECHNIQUE: Frontal view of the chest. COMPARISON: XY CHEST XRAY 1 VIEW on DOS: 08/11/24 FINDINGS: Widened mediastinum. There is no evidence of pleural disease. The lungs are clear. The bony structures of the chest are intact without fracture. IMPRESSION: 1. Widened mediastinum. Consider CT examination of the chest.. 2. Cardiomegaly with CHF. ATED BY: SARAH HALL MD DICTATED DATE/TIME: 05/19/25757 SIGNED BY: SARAH HALL MD SIGNED DATE/TIME: 05/19/25757 CC: Time of 1ST Reevaluation: 07:35 Reevaluation 1ST: Unchanged Patient Education/Counseling: Diagnosis, Treatment, Prognosis Family Education/Counseling: No Family Present SEPSIS Sepsis Screen Physician Orders Urinalysis (05/19/25 07:05) Chest Portable (05/19/25 07:05) Electrocardigram (05/19/25 07:05) Troponin-I Hs (05/19/25 10:05) Electrocardigram (05/19/25 08:05) Electrocardigram (05/19/25 10:05) Chst Ab Pel Wo Con-No Iv/Oral (05/19/25 07:05) Hydralazine Injection (Apresoline Inject (05/19/25 11:15) Ng/Orogastric Tube To Lis (05/19/25 11:12) * Surgical Consult (05/19/25 ) Vital Signs Date Time Temp Pulse Resp B/P (MAP) Pulse Ox O2 Delivery O2 Flow Rate FiO2 05/19/25 08:46 97.6 10 18 189/111 (137) 98 97.6 05/19/25 08:17 106 17 189/111 05/19/25 07:47 109 16 179/118 05/19/25 07:20 109 17 96 Room Air* 0 21 05/19/25 07:20 97.6 109 17 179/118 (138) 98 97.6 05/19/25 07:09 108 05/19/25 07:02 108 05/19/25 07:00 98.6 106 20 179/116 99 98.6 Laboratory Tests Test 05/19/25 07:36 White Blood Count 8.1 10^3/uL (4.4-10.8) Medications Medications Dose Ordered Sig/Saad Route Start Time Stop Time Status Last Admin Dose Admin Morphine Sulfate 4 mg ONCE ONCE IV 05/19/25 07:15 05/19/25 07:16 DC 05/19/25 07:47 Ondansetron HCl 4 mg ONCE ONCE IV 05/19/25 07:15 05/19/25 07:16 DC 05/19/25 07:48 Sodium Chloride 1,000 ml @ 1,000 mls/hr Q1H ONCE IV 05/19/25 07:15 05/19/25 08:14 DC 05/19/25 07:48 Departure 1 Departure Time of Disposition: 11:15 (Patient presented with abdominal pain that was concerning for possible appendicits, gastritis, cholecystitis, colitis, gastroenteritis, sbo, or orther possible surgical emergency. Data: 1. I ordered and reviewed the result of at least 3 labs including a CBC, BMP, and Urinalysis. 2. I independently interpreted the following tests: CT Abdomen and Pelvis is concerning for small-bowel obstruction .Risk:This patient has a high risk of morbidity due to further diagnostic testing or treatment and may suffer from an acute abdominal process disorder. Workup reveals small-bowel obstruction and patient should be admitted for further workup. and possible expert consultation. ) Impression: Primary Impression: Small bowel obstruction Disposition: 09 ADMITTED INPATIENT Admit to: Tele Condition: Guarded Critical Care Note Critical Care Time?: Yes Critical care comment: Small-bowel obstruction Authorized and Performed by: Azul Salas MD Total critical care time: Approximately 39 minutes Due to a high probability of clinically significant, life threatening deterioration, the patient required my highest level of preparedness to intervene emergently and I personally spent this critical care time directly and personally managing the patient. This critical care time included obtaining a history; examining the patient; pulse oximetry; ordering and review of studies; arranging urgent treatment with development of a management plan; evaluation of patient's response to treatment; frequent reassessment; and, discussions with o ther providers. This critical care time was performed to assess and manage the high probability of imminent, life-threatening deterioration that could result in multi-organ failure. It was exclusive of separately billable procedures and treating other patients and teaching time. Please see my other sections and the rest of the note for further information on patient assessment and treatment. Stability Stability form required: No Heart Score Heart Score: Heart Score Response (Comments) Value History N/A 0 EKG N/A 0 Age N/A 0 Risk Factors N/A 0 Troponin N/A 0 Total 0 I personally scribed for AZUL SALAS MD ([email or web address]) on 05/19/25 at 07:09. Electronically submitted by Ami Wynne ([email or web address]). I personally scribed for AZUL SALAS MD ([email or web address]) on 05/19/25 at 08:13. Electronically submitted by Ami Wynne ([email or web address]). AZUL SALAS MD May 19, 2025 07:09
[2025-05-19 07:20] VITALS: PULSE 109; RESP 17; O2SAT 96
[2025-05-19] MEDS: MORPHINE SULFATE 4 MG/ML SYR/VIAL IV ONE ×3 (07:47→15:56)
[2025-05-19] MEDS: SODIUM CHLORIDE 0.9% 1,000 ML IV ONE ×2 (07:48→17:38)
[2025-05-19] MEDS: ONDANSETRON HCL 4 MG/2 ML VIAL IV ONE ×3 (07:48→15:53)
--- NOTE | 2025-05-19 08:00 | DVH ---
INDICATION: abd pain TECHNIQUE: Frontal view of the chest. COMPARISON: XY CHEST XRAY 1 VIEW on DOS: 08/11/24 FINDINGS: Widened mediastinum. There is no evidence of pleural disease. The lungs are clear. The bony structures of the chest are intact without fracture. IMPRESSION: 1. Widened mediastinum. Consider CT examination of the chest.. 2. Cardiomegaly with CHF.
[2025-05-19 08:28] LABS: Hematocrit 45.0 % (41.0-53.0); Hemoglobin 15.1 g/dL (13.5-17.5); Mean Corpuscular Hemoglobin 31.3 pg (28.0-32.0); Mean Corpuscular Volume 93.1 fL (80.0-100.0); Nucleated Red Blood Cells % 0.1 %
[2025-05-19 09:12] LABS: Sodium 140 mmol/L (136-145)
[2025-05-19 09:13] LABS: Anion Gap 9 (5-15); Carbon Dioxide 21 mmol/L (20-31)
[2025-05-19 09:15] LABS: Calcium 8.5 mg/dL (8.7-10.4); Chloride 110 mmol/L (98-107); Potassium 5.1 mmol/L (3.5-5.1)
[2025-05-19 09:18] LABS: BUN/Creatinine Ratio 16.9 (10.0-20.0)
[2025-05-19 09:27] LABS: Blood Urea Nitrogen 39 mg/dL (9-23); Glucose 117 mg/dL (74-106)
--- NOTE | 2025-05-19 10:32 | DVH ---
CLINICAL HISTORY: abd pain/ INFILTRATES TECHNIQUE: CT of the chest, abdomen, and pelvis was performed with IV contrast. Coronal and sagittal reformatted images were performed for better depiction of the anatomy. This exam was performed according to our departmental dose optimization program. Up-to-date CT equipment and radiation dose reduction techniques are utilized as appropriate. CTDI 18 DLP 1306 COMPARISON: CT CT AB PEL WO CON-NO ORAL OR IV on DOS: 08/09/24 FINDINGS: CHEST: The thoracic aorta is normal in course and caliber. There are mild aortic atherosclerotic calcifications. The heart is normal in size. No pericardial effusion is seen. There are 3-vessel coronary artery calcifications. No enlarged mediastinal, hilar, or axillary lymph node is present. The central airways are patent. There is no bronchiectasis. There is no suspicious pulmonary nodule or area of consolidation. There are mild scattered linear atelectatic changes within the right lung and left lower lobe. There is no pleural effusion present. ABDOMEN/PELVIS: The spleen, pancreas, adrenal glands, liver, right kidney, and prostate gland are grossly unremarkable. There is a 3.2 cm gallstone. There is mild left renal cortical scarring. The abdominal aorta is normal in course and caliber. There are [id number]-[id number] atherosclerotic calcifications. There is no free intraperitoneal air or fluid. There is no enlarged abdominal or pelvic lymph node. There is no bowel wall thickening or dilatation. The appendix is normal. There is a moderate size right paramedian ventral hernia containing fat. There is associated small bowel, which appears mildly dilated as it enters the hernia sac, measuring 3.1 cm. Bowel appears normal in caliber exiting the hernia sac. There is a moderate right inguinal hernia containing fat and loop of nonobstructed cecum and terminal ileum. The Normal appendix is within this hernia sac. BONES: No acute osseous abnormality is evident. IMPRESSION: [id number]-[id number] right paramedian ventral hernia resulting in a small bowel obstruction, which appears low-grade. Moderate right inguinal hernia containing fat and nonobstructed terminal ileum and cecum. 3-vessel coronary artery calcifications. Cholelithiasis. Mild left renal cortical scarring.
[2025-05-19 11:42] LABS: Urine Protein, UAD 2+ (Negative)
[2025-05-19] MEDS: hydrALAZINE HCL 20 MG/ML VL IV ONE (11:47)
[2025-05-19] MEDS: GASTROGRAFIN 120 ML SOL ONE (13:20)
[2025-05-19] MEDS ORDERED: NITROGLYCERIN 0.4 MG SL TAB SL PRN (17:15)
[2025-05-19] MEDS ORDERED: MORPHINE SULFATE 4 MG/ML SYR/VIAL IV PRN (17:15)
--- NOTE | 2025-05-19 18:43 | DVH ---
PROCEDURE: XY SMALL BOWEL SERIES-W GASTROGRA Reason for study/Clinical History: Small-bowel obstruction Comparison Study: None TECHNIQUE: Single contrast small bowel series performed. FINDINGS/IMPRESSION: Initial logistics analyst view of the abdomen and pelvis appears demonstrates no acute process. Limited evaluation however extension of contrast into the colon at the 6 hour time point which is above normal limits compatible with slow small bowel transit time. Retention of contrast within the stomach Question contour abnormality of the right inferior pubic ramus which may be artifactual versus age-indeterminate nondisplaced fracture
[2025-05-19 19:30] VITALS: PULSE 115; RESP 17; O2SAT 96
[2025-05-19] MEDS: MORPHINE SULFATE 4 MG/ML SYR/VIAL IV PRN (20:42)
[2025-05-19 21:48] VITALS: BP 156/95; PULSE 125; PULSE 68; RESP 17; RESP 18; TEMP 97.6; O2SAT 94; O2SAT 99
[2025-05-19] MEDS ORDERED: TAMS0.4C39 PO (22:21)
[2025-05-19] MEDS ORDERED: VERA80TA4 PO (22:21)
[2025-05-19] MEDS ORDERED: PARO10TA93 PO (22:21)
[2025-05-19] MEDS ORDERED: GAB100C PO (22:21)
[2025-05-20 01:00] VITALS: BP 157/96; PULSE 107; RESP 18; TEMP 97.6; O2SAT 97
[2025-05-20 05:00] VITALS: BP 139/99; PULSE 101; RESP 16; TEMP 98; O2SAT 92
--- NOTE | 2025-05-20 08:44 | DVHPN2 ---
Progress Note Date Seen: May 20, 2025 Medical Necessity Reason Pt with a Central, PICC or Fol: No Objective vital signs Vital Sign Date Time Temp Pulse Resp B/P (MAP) Pulse Ox O2 Delivery O2 Flow Rate FiO2 05/20/25 05:00 98.0 101 16 139/99 (112) 92 98.0 05/19/25 21:48 Room Air* 0 21 Total Intake and Output 05/19/25 05/19/25 05/20/25 15:00 23:00 07:00 Intake Total 1000 ml 100 ml 800 ml Output Total 850 ml 400 ml Balance 150 ml -300 ml 800 ml medications Current Medications Medications Dose Ordered Sig/Saad Route Start Time Stop Time Status Last Admin Dose Admin Enoxaparin Sodium 30 mg DAILY SC 05/20/25 10:00 Morphine Sulfate 2 mg Q4HPRN PRN IV 05/19/25 17:15 Nitroglycerin 0.4 mg Q5MINP PRN SL 05/19/25 17:15 Morphine Sulfate 2 mg Q30M PRN IV 05/19/25 17:15 05/19/25 20:42 2 MG laboratory and microbiology Laboratory Tests 05/19/25 08:32 05/19/25 07:36 Test 05/19/25 08:32 Range/Units Serum Glucose 117 H 74-106 mg/dL Problem List/Assessment/Plan Problem List/Assessment/Plan 05/20/25 informed by nurse patient leaving AMA Plan discussed with: BRAYAN Mabry MD May 20, 2025 08:44
[2025-05-20] MEDS ORDERED: ENOXAPARIN SOD 30 MG/0.3 ML SYRINGE SC SCH (10:00)
--- NOTE | 2025-05-20 13:15 | DVHDS2 ---
Discharge Summary Date of Admission May 19, 2025 at 17:11 Labs/Diagnostic Data: Laboratory Results Test 05/19/25 10:50 05/19/25 09:40 05/19/25 08:32 05/19/25 07:36 Troponin I High Sensitivity 30 ng/L (</=54) Urine Color Light-yellow (Yellow) Urine Clarity Clear (Clear) Urine pH 6.5 (5.0-9.0) Urine Specific [place] 1.015 (1.001-1.035) Urine Protein 2+ (Negative) Urine Ketones Negative (Negative) Urine Blood Negative /uL (Negative) Urine Nitrite Negative (Negative) Urine Bilirubin Negative (Negative) Urine Urobilinogen Normal mg/dL (Negative) Urine Leukocyte Esterase Negative /uL (Negative) Urine RBC <1 /hpf (0 - 3) Urine Microscopic WBC 1 /HPF (0-3) Urine Squamous Epithelial Cells Few /hpf (<5) Urine Bacteria None seen /hpf (None Seen) Urine Glucose Normal mg/dL (Normal) Sodium Level 140 mmol/L (136-145) Potassium Level 5.1 mmol/L (3.5-5.1) Chloride Level 110 mmol/L (98-107) Carbon Dioxide Level 21 mmol/L (20-31) Anion Gap 9 (5-15) Blood Urea Nitrogen 39 mg/dL (9-23) Creatinine 2.31 mg/dL (0.700-1.30) Glomerular Filtration Rate Calc 30 mL/min (>90) BUN/Creatinine Ratio 16.9 (10.0-20.0) Serum Glucose 117 mg/dL (74-106) Calcium Level 8.5 mg/dL (8.7-10.4) White Blood Count 8.1 10^3/uL (4.4-10.8) Red Blood Count 4.83 10^6/uL (4.5-5.90) Hemoglobin 15.1 g/dL (13.5-17.5) Hematocrit 45.0 % (41.0-53.0) Mean Corpuscular Volume 93.1 fL (80.0-100.0) Mean Corpuscular Hemoglobin 31.3 pg (28.0-32.0) Mean Corpuscular Hemoglobin Concent 33.6 g/dL (32.0-36.0) Red Cell Distribution Width 12.7 % (11.8-14.3) Platelet Count 171 10^3/uL (140-450) Mean Platelet Volume 8.7 fL (6.9-10.8) Neutrophils (%) (Auto) 74.2 % (37.0-80.0) Lymphocytes (%) (Auto) 17.4 % (10.0-50.0) Monocytes (%) (Auto) 7.6 % (0.0-12.0) Eosinophils (%) (Auto) 0.3 % (0.0-7.0) Basophils (%) (Auto) 0.5 % (0.0-2.0) Neutrophils # (Auto) 6.0 10 ^3/uL (1.6-8.6) Lymphocytes # (Auto) 1.4 10 ^3/uL (0.4-5.4) Monocytes # (Auto) 0.6 10 ^3/uL (0-1.3) Eosinophils # (Auto) 0 10 ^3/uL (0-0.8) Basophils # (Auto) 0 10 ^3/uL (0-0.2) Nucleated Red Blood Cells 0.1 % Other Laboratory Tests 05/19/25 08:32 05/19/25 07:36 Discharge Instruct/Medications Scheduled Apixaban Base (Eliquis), 5 MG PO BID, (Reported) Atorvastatin Calcium (Atorvastatin Calcium), 1 TAB PO DAILY, (Reported) Carvedilol (Carvedilol), 1 TAB PO DAILY, (Reported) Furosemide (Furosemide), 1 TAB PO DAILY, (Reported) Gabapentin (Gabapentin), 1 CAP PO TID, (Reported) Paroxetine Hydrochloride (Paroxetine Hydrochloride), 1 TAB PO DAILY, (Reported) Verapamil Hcl (Verapamil Hcl), 1 TAB PO TID, (Reported) Miscellaneous Medications Apixaban Base (Eliquis), 1, (Reported) Tamsulosin Hcl (Tamsulosin Hcl), CAP PO, (Reported) Discharge Statement: "Patient was advised to return to the ER or call 911 if any headaches, dizziness, shortness of breath, chest pain, abdominal pain, bleeding, fevers, or worsening of medical condition. Patient was counseled about treatment plan, medications, possible side effects, patientverbalized understanding. All questions were answered to the best of my ability. This discharge took greater then 30 minutes in planning, reviewing documentation, counseling the patient, and discussing with other team members." ASSESSMENT ASSESSMENT Assessment NILSON MIRANDA DO May 20, 2025 13:15
== END 2025-05-20 08:18 | disposition left against medical advice (07) | DRG 389 ==
LOC: ER 07:00 → EDBD 07:00 → OVERFLOW 17:11 → TELE-EAST 21:45
PROVIDERS: ADMIT Internal Medicine; ATTEND Internal Medicine
DX: K56.609 Unspecified intestinal obstruction, unspecified as to partial versus complete obstruction (principal); I13.0 Hypertensive heart and chronic kidney disease with heart failure and stage 1 through stage 4 chronic kidney disease, or unspecified chronic kidney disease; I50.9 Heart failure, unspecified; Z79.01 Long term (current) use of anticoagulants; N18.9 Chronic kidney disease, unspecified; Z53.29 Procedure and treatment not carried out because of patient's decision for other reasons; Z79.899 Other long term (current) drug therapy
CPT/HCPCS: 36415; 71045; 71250; 74176; 74250; 80048; 81001; 84484; 85025; 87493; 93005; 96361; 96374; 99291; G0378; J2405